=== PATIENT | female | born 1965 | race African-American/Black ===

== ENCOUNTER → 2016-09-15 | Outpatient (CLI) | payer BC ==
[~2016-09-15] MED LIST: ASCA500 PO; ASPI81TA28 PO; ATOR-22 PO; ATV/1 PO; BIOF500T PO; CHOL1000 PO; CRG3125 PO; EFF/375 PO; EFF75 PO; ESCI10TA17 PO; ESCI1TAB10 PO; GABA-112 PO; KRIL1CAP18 PO; LISI-729 PO; METO25TA56 PO; MULT-1092 PO; MULT-190 PO; MULT-506 PO; MULT1PAK PO; NAPR-1169 PO; OMEG12006 PO; OXYC5TAB PO; TRAM-10 PO; VITA400C28 PO
--- NOTE | 2016-09-15 09:58 | DIAGNOSTIC IMAGING REPORT ---
PET/CT SKULL-THIGH CLINICAL HISTORY: BREAST CANCER COMPARISON STUDY: 05/19/2016 FINDINGS: The patient was injected with 15.3 mCi of F-18 labeled FDG. Following the standard induction phase PET/CT scanning was performed from the skull base the upper thigh region. Activity within the neck is felt to be physiologic. Within the chest, there is increased FDG activity fusing to a single nonpathologically enlarged anterior mediastinal lymph node measuring 4 mm in short axis. This has SUV maximum of 4.3. The previously identified foci of increased FDG activity fusing to the right internal mammary artery chain are no longer evident. There are postsurgical changes of bilateral breast implants. There is increased FDG activity fusing to the lower right lateral chest wall at the intercostal level. This has SUV maximum of 4.5. There is infiltration of the overlying subcutaneous fat. In addition, there is a plaque-like pleural-based opacity measuring 38 x 12 mm. This plaque-like density has SUV maximum of 2.9. The findings are not typical for neoplasm. Does this patient have a history of surgery at this level. There is also a tiny calcific density within the pleura at this level which was not visualized the prior study Within the abdomen, there is no FDG avid adenopathy. There is physiologic urinary tract and bowel activity. There is no pathologic hepatic activity. There is no pathologic skeletal activity. Incidental note is made of cholelithiasis. There are right apical airspace opacities, similar to the prior study and likely representing areas of scarring. IMPRESSION: 1. Interval resolution of the previously described foci of increased FDG activity in the region of the right internal mammary lymph node chain 2. Nonspecific focus of mildly increased FDG activity (SUV maximum 4.3) fusing to a nonpathologically enlarged 4 mm right anterior mediastinal lymph node 3. New plaque-like pleural-based opacity at the base the right hemithorax laterally. This measures 38 x 12 mm, and has SUV maximum of 2.9. Adjacent to this is a focus of increased FDG activity within the intercostal region with SUV maximum of 4.5. There is also adjacent stranding within the overlying subcutaneous fat. As stated above, the findings are not typical for neoplasm. Clinical correlation in regards to any surgical procedure performed at this level is recommended Electronically signed by: Lamont Velez M.D. 09/15/2016 9:56 AM
== END | disposition home or self-care (01) ==
LOC: C.PET 07:58
PROVIDERS: ATTEND Internal Medicine Hematology
DX: C50.911 Malignant neoplasm of unspecified site of right female breast (principal); C77.3 Secondary and unspecified malignant neoplasm of axilla and upper limb lymph nodes

== ENCOUNTER → 2016-12-15 | Outpatient (CLI) | payer BC ==
[~2016-12-15] MED LIST changes: -ASPI81TA28 PO; -ATOR-22 PO; -BIOF500T PO; -CRG3125 PO; -ESCI10TA17 PO; -MULT-1092 PO; -MULT1PAK PO; -OMEG12006 PO
--- NOTE | 2016-12-15 11:16 | DIAGNOSTIC IMAGING REPORT ---
PET/CT HISTORY: Breast carcinoma BREAST CANCER TECHNIQUE: PET/CT was performed from the base of the skull through the pelvis following the intravenous administration of 15.4 mCi of F18-FDG. Non-contrast CT imaging was performed over the same range without breath-hold for attenuation correction of PET images and anatomic correlation, but not for primary interpretation as it is not of standard diagnostic quality. CT DOSE: COMPARISON: 09/15/2016 FINDINGS: HEAD AND NECK: There is no FDG-avid disease or significant lymphadenopathy in the imaged portions of the head and the neck. CHEST: 6 mm focus of increased metabolic activity in the right paratracheal location have an SUV of 4.0. This is increased in the prior exam. Nonspecific focus of increased activity left anterior chest wall with no CT correlate. Activity previously described to the lung bases has essentially resolved ABDOMEN/PELVIS: Below the diaphragm, tracer is distributed physiologically in the gastrointestinal and genitourinary tracts. There is no significant lymphadenopathy and no FDG-avid disease. MUSCULOSKELETAL: There is no FDG-avid or destructive bone lesion. IMPRESSION: 1. Mixed findings. 2. Improved metabolic activity characteristics of a plaque-like density right lung base. 3. Interval development of a small 6 mm metabolically active right paratracheal node as well as a small nonspecific focus left anterior chest wall 4. Study is otherwise negative Electronically signed by: Miah Parker M.D. 12/15/2016 11:14 AM Dictated Date/Time: 12/15/2016 11:03 AM
== END | disposition home or self-care (01) ==
LOC: C.PET 08:09
PROVIDERS: ATTEND Internal Medicine Hematology
DX: C50.911 Malignant neoplasm of unspecified site of right female breast (principal)

== ENCOUNTER → 2017-01-18 | Outpatient (CLI) | payer BC ==
[~2017-01-18] MED LIST changes: +ASPI81TA28 PO; +ATOR-22 PO; +BIOF500T PO; +CRG3125 PO; +ESCI10TA17 PO; +MULT-1092 PO; +MULT1PAK PO; +OMEG12006 PO
[2017-01-18 16:48] LABS: BASO % 0.3 %; BASO ABS # 0.01 K/uL (0-0.2); COMPLETE YES; EOS % 1.9 %; HEMATOCRIT 41.7 % (37-47); LYMPH % 41.1 %; LYMPH ABS # 1.54 K/uL (1.2-3.4); MEAN CELL VOLUME 86.2 fL (80-100); MEAN CORPUSCULAR HEMOGLOBIN 28.3 pg (25-34); MEAN CORPUSCULAR HGB CONC 32.9 g/dl (32-36); MEAN PLATELET VOLUME 8.8 fL (7.4-10.4); MONO % 9.3 %; NEUT % 47.4 %; PLATELET COUNT 161 K/uL (130-400); RED BLOOD COUNT 4.84 M/uL (4.2-5.4); WHITE BLOOD COUNT 3.75 K/uL (4.8-10.8)
[2017-01-18 17:29] LABS: BLOOD UREA NITROGEN 14 mg/dl (7-18); CALCIUM 10.1 mg/dl (8.5-10.1); CARBON DIOXIDE 33 mmol/L (21-32); CHLORIDE 104 mmol/L (98-107); CREATININE 0.99 mg/dl (0.60-1.20); GLUCOSE 76 mg/dl (70-99); POTASSIUM 4.3 mmol/L (3.5-5.1); SODIUM 142 mmol/L (136-145)
== END | disposition home or self-care (01) ==
LOC: C.LAB 15:28
PROVIDERS: ATTEND Surgery
DX: R94.8 Abnormal results of function studies of other organs and systems (principal); Z85.3 Personal history of malignant neoplasm of breast; R91.1 Solitary pulmonary nodule

== ENCOUNTER → 2017-01-24 | Day surgery (SDC) | payer BC ==
[2017-01-21 09:31] VITALS: BMI 24.0
[~2017-01-24] VITALS: Ht 180.3 cm; Wt 78.2 kg
[~2017-01-24] MED LIST changes: +ATROPINE SULFATE 0.1 MG/ML 5ML SYR IV PRN; +CEFAZOLIN SOD 1 GM VIAL ONE; +CLINDAMYCIN PHOS 150 MG/ML 2 ML VIAL ONE; +DEXAMETHASONE SOD INJ 4 MG/ML VIAL ONE; +EpHEDrine SULFATE 50MG/5ML SYR ONE; +EpHEDrine SULFATE INJ 50 MG/ML AMP IV PRN; +FENTANYL CITRATE INJ 50 MCG/1 ML 2 ML VIAL ONE; +FLUMAZENIL 0.1 MG/1 ML 10 ML VIAL IV PRN; +GLYCOPYRROLATE INJ 0.2 MG/ML VIAL ONE; +HYDROmorphone INJ 1 MG/ML SYR IV PRN; +HYDROmorphone INJ 1 MG/ML SYR ONE; +LACTATED RINGER'S 1000ML 1,000 ML IV SCH; +LIDOCAINE HCL 2% 2 ML VIAL (20MG/ML) ONE; +MIDAZOLAM HCL 1 MG/ML 2ML VIAL ONE; +MoRPHine SULFATE 2 MG/ML CARP IV PRN; +NALOXONE HCL 0.4 MG/1 ML VIAL/CARP IV PRN; +NEOSTIGMINE METHYLSULFATE 5 MG/5 ML SYR ONE; +ONDANSETRON INJ 2 MG/ML 2 ML VIAL IV PRN; +ONDANSETRON INJ 2 MG/ML 2 ML VIAL ONE; -OXYC5TAB PO; +PROMETHAZINE HCL INJ 12.5 MG in SODIUM CHLORIDE 0.9% 50ML 50 ML IV PRN; +PROPOFOL IV EMULSION 10 MG/ML 20 ML VIAL IV ONE; +ROCURONIUM BROMIDE 10 MG/ML 5 ML VIAL ONE; +TRAMADOL HCL 50 MG TAB PO PRN
[2017-01-24 06:06] VITALS: Ht 180.3 cm; Wt 78.2 kg
--- NOTE | 2017-01-24 06:57 | History & Physical Bridge Note ---
H&P Re-Evaluation Bridge Note: I have examined the patient, reviewed the History & Physical and in the interval since the performance of the History & Physical I have noted the following changes of clinical significance: No changes noted
--- NOTE | 2017-01-24 08:02 | Discharge Instructions ---
Discharge Instructions Date of Service January 24, 2017. Visit Reason for Visit: Pulmonary Nodule, Hx Of Breast Cancer, Abn Pet Sca Discharge Discharge Diagnosis / Problem: Pulmonary Nodule, Hx Of Breast Cancer, Abn Pet Sca Discharge Goals Goal(s): Learn about illness Activity Recommendations Activity Limitations: resume your previous activity (in 24 hours) Anesthesia . Post Anesthesia Instructions: If you have had General Anesthesia or IV Sedation: * Do not drive today. * Resume driving when surgeon permits. * Do not make important decisions or sign legal documents today. * Call surgeon for: 1. Temperature elevations greater than 101 degrees F. 2. Uncontrollable pain. 3. Excessive bleeding. 4. Persistent nausea and vomiting. 5. Medication intolerance (nausea, vomiting or rash). * For nausea and vomiting use only clear liquids such as: tea, soda, bouillon until nausea subsides, then gradually increase diet as tolerated. * If you have any concerns or questions, call your surgeon's office. If physician is unavailable and it is an emergency, call 911 or go to the nearest emergency room. . Instructions / Follow-Up Instructions / Follow-Up 1. Call physician if you experience difficulty swallowing or breathing. 2. Keep your scheduled appointment with Dr. Teixeira on February 01 @9:30. Diet Recommendations Recommended Home Diet: resume previous diet Pending Studies Studies pending at discharge: no Medical Emergencies . Who to Call and When: Medical Emergencies: If at any time you feel your situation is an emergency, please call 911 immediately. . Non-Emergent Contact Non-Emergency issues call your: Surgeon Call Non-Emergent contact if: you have a fever, your pain is not controlled, wound has increased drainage . . "Provider Documentation" section prepared by Jr Moralez. .
--- NOTE | 2017-01-24 10:18 | DIAGNOSTIC IMAGING REPORT ---
CHEST ONE VIEW PORTABLE HISTORY: mediastinoscopy COMPARISON: Chest 06/29/2016. FINDINGS: The heart is normal in size. A few bibasilar linear densities favor subsegmental atelectasis. No pleural effusions. No pneumothorax. The upper lung zones are clear. IMPRESSION: No acute process within the chest. Bibasilar linear densities favor atelectasis. Electronically signed by: Brad Paec M.D. 01/24/2017 10:17 AM Dictated Date/Time: 01/24/2017 10:15 AM
--- NOTE | 2017-01-24 11:37 | Anesthesiology Progress Note ---
Anesthesia Post Op Note Date & Time January 24, 2017 at 11:36 Vital Signs Pain Intensity: 3 Vital Signs Past 12 Hours Date Time Temp Pulse Resp B/P Pulse Ox O2 Delivery O2 Flow Rate FiO2 01/24/17 11:32 86 14 01/24/17 11:32 86 14 100 01/24/17 11:31 108/67 01/24/17 11:27 89 11 100 01/24/17 11:27 89 11 01/24/17 11:26 114/69 01/24/17 11:22 90 10 01/24/17 11:22 90 10 100 01/24/17 11:21 114/72 01/24/17 11:17 86 11 01/24/17 11:17 86 11 100 01/24/17 11:16 116/72 01/24/17 11:12 86 12 01/24/17 11:12 85 12 100 01/24/17 11:11 111/70 01/24/17 11:07 86 10 01/24/17 11:07 86 10 100 01/24/17 11:06 114/71 01/24/17 11:02 88 12 01/24/17 11:02 89 12 100 01/24/17 11:01 116/73 01/24/17 10:57 86 13 100 01/24/17 10:57 86 13 01/24/17 10:56 119/76 01/24/17 10:55 94 18 01/24/17 10:55 94 18 100 01/24/17 10:51 116/72 01/24/17 10:50 89 16 01/24/17 10:50 91 16 100 01/24/17 10:46 121/73 01/24/17 10:45 87 17 100 01/24/17 10:45 88 17 01/24/17 10:40 84 9 122/78 100 01/24/17 10:40 84 9 01/24/17 10:36 117/73 01/24/17 10:35 92 15 100 01/24/17 10:35 89 15 01/24/17 10:31 122/77 01/24/17 10:30 86 12 99 01/24/17 10:30 86 12 01/24/17 10:26 121/76 01/24/17 10:25 88 14 100 01/24/17 10:25 88 14 01/24/17 10:21 120/74 01/24/17 10:20 91 18 98 01/24/17 10:20 91 18 01/24/17 10:16 124/79 01/24/17 10:15 81 15 01/24/17 10:15 82 15 98 01/24/17 10:14 82 12 01/24/17 10:14 81 12 99 01/24/17 10:11 101/71 01/24/17 10:09 93 23 100 01/24/17 10:09 94 23 01/24/17 10:06 119/75 01/24/17 10:04 89 13 01/24/17 10:04 89 13 99 01/24/17 10:03 92 12 100 01/24/17 10:03 90 12 01/24/17 10:01 122/74 01/24/17 09:58 85 15 100 01/24/17 09:58 86 15 01/24/17 09:56 115/68 01/24/17 09:53 75 21 01/24/17 09:53 75 21 100 01/24/17 09:51 109/67 01/24/17 09:48 80 15 115/73 100 01/24/17 09:48 36.2 81 20 115/73 100 Mask 10 01/24/17 09:48 80 15 Notes Mental Status: alert / awake / arousable, participated in evaluation Pt Amnestic to Procedure: Yes Nausea / Vomiting: adequately controlled Pain: adequately controlled Airway Patency, RR, SpO2: stable & adequate BP & HR: stable & adequate Hydration State: stable & adequate Anesthetic Complications: no major complications apparent
[2017-01-24 11:48] VITALS: BP 117/63; PULSE 94; TEMP 36.5; O2SAT 96
--- NOTE | 2017-01-24 12:15 | OPERATIVE REPORT ---
DATE OF OPERATION: 01/24/2017 PREOPERATIVE DIAGNOSES: 1. Hypermetabolic mediastinal lymph nodes. 2. History of metastatic breast cancer. POSTOPERATIVE DIAGNOSES: 1. Metastatic carcinoma mediastinal lymph nodes. 2. History of breast cancer. PROCEDURE: Video mediastinoscopy with biopsy. SURGEON: Dr. Teixeira. COAL MINE INSPECTOR: TINY Castorena, and bee Mace 3. ANESTHESIA: General anesthesia with endotracheal intubation. INDICATION FOR PROCEDURE AND FINDINGS: Radha Fuller is a 52-year-old female who has a history of right breast cancer, underwent a right mastectomy, then a left mastectomy, and was found to have metastatic disease from her right breast to her lymph nodes. She received chemotherapy and radiation with bilateral breast reconstructions. I saw her several months ago when she had hypermetabolic nodes in her right internal mammary artery chain and did a thoracoscopic resection of these nodes. They were indeed metastatic breast cancer but were the only site of metastasis. She recently underwent a PET scan. Two areas in the mediastinum lit up, and on CT, the lymph nodes really were not enlarged. In addition, 1 of these masses/lymph nodes was prevascular in the level 3 area. On 01/24/2017, I took the patient to the operating room and did an uncomplicated video mediastinoscopy. I also did an extended mediastinoscopy and went into the prevascular plane. I was able to remove both of these nodes. Frozen section of the higher level 2 node was positive for carcinoma. She had no significant bleeding. She tolerated it well. PROCEDURE: The patient was brought to the operating room and laid in supine position. General anesthesia induced and endotracheal intubation was performed. After appropriate antibiotics had been given and timeout had been called out, an incision was made 1 fingerbreadth above the sternal notch. The strap muscles were divided in the midline and then the pretracheal plane was developed bluntly. I was able to put the scope in easily. The video mediastinoscope provided good visualization of the entire trachea down to the bifurcation. I cleaned off the azygos vein quite well and really saw very little in the 4 area. I actually dissected out quite aggressively on the lateral aspect of the right trachea. Then, I came upon a firm hard node at the level 2 area and removed it. Frozen section showed this to be metastatic carcinoma. This node was removed in its entirety. It measured about a centimeter. I then developed a plane anterior to the innominate artery and placed my scope, it came down, I was able to visualize the tissue between the vena cava and the aorta. I dissected this out meticulously. This hypermetabolic small focus was at the level of the azygos but was more anterior. I then went back into the pretracheal plane and I was able to come to this area where I dissected from anteriorly and removed this lymph node. I removed all the tissue here and there was acanthosis of the node. Really got into very little in the way of bleeding. I did not biopsy anything on the left side. I slowly withdrew the video mediastinoscope, saw no evidence of bleeding. I then used a 3-0 Vicryl to close the strap muscles and then 4-0 Monocryl in a running subcuticular fashion to approximate the wound edges. She tolerated it quite well. I attest to the content of the Intraoperative Record and any orders documented therein. Any exceptions are noted below. PATRICK
[2017-01-24 12:20] VITALS: BP 110/62; PULSE 100; O2SAT 96
[2017-01-24 12:50] VITALS: BP 106/61; PULSE 92; TEMP 36.4; O2SAT 97
[2017-01-24 13:25] VITALS: BP 110/61; PULSE 90; TEMP 36.4; O2SAT 97
[2017-01-24 13:44] VITALS: BP 110/66; PULSE 90; TEMP 36.5; O2SAT 96
== END | disposition home or self-care (01) ==
LOC: C.ACU 05:41
PROVIDERS: ATTEND Surgery
DX: C77.3 Secondary and unspecified malignant neoplasm of axilla and upper limb lymph nodes (principal); Z85.3 Personal history of malignant neoplasm of breast; R94.8 Abnormal results of function studies of other organs and systems; R91.1 Solitary pulmonary nodule; Z79.899 Other long term (current) drug therapy; Z90.13 Acquired absence of bilateral breasts and nipples; Z90.89 Acquired absence of other organs; F41.9 Anxiety disorder, unspecified; Z90.710 Acquired absence of both cervix and uterus; Z68.24 Body mass index [BMI] 24.0-24.9, adult; Z83.3 Family history of diabetes mellitus; Z82.49 Family history of ischemic heart disease and other diseases of the circulatory system

== ENCOUNTER → 2017-04-14 | Outpatient (CLI) | payer BC ==
[~2017-04-14] MED LIST changes: -ASPI81TA28 PO; -ATOR-22 PO; -ATROPINE SULFATE 0.1 MG/ML 5ML SYR IV PRN; -BIOF500T PO; -CEFAZOLIN SOD 1 GM VIAL ONE; -CLINDAMYCIN PHOS 150 MG/ML 2 ML VIAL ONE; -CRG3125 PO; -DEXAMETHASONE SOD INJ 4 MG/ML VIAL ONE; -ESCI10TA17 PO; -EpHEDrine SULFATE 50MG/5ML SYR ONE; -EpHEDrine SULFATE INJ 50 MG/ML AMP IV PRN; -FENTANYL CITRATE INJ 50 MCG/1 ML 2 ML VIAL ONE; -FLUMAZENIL 0.1 MG/1 ML 10 ML VIAL IV PRN; -GLYCOPYRROLATE INJ 0.2 MG/ML VIAL ONE; -HYDROmorphone INJ 1 MG/ML SYR IV PRN; -HYDROmorphone INJ 1 MG/ML SYR ONE; -LACTATED RINGER'S 1000ML 1,000 ML IV SCH; -LIDOCAINE HCL 2% 2 ML VIAL (20MG/ML) ONE; -MIDAZOLAM HCL 1 MG/ML 2ML VIAL ONE; -MULT-1092 PO; -MULT1PAK PO; -MoRPHine SULFATE 2 MG/ML CARP IV PRN; -NALOXONE HCL 0.4 MG/1 ML VIAL/CARP IV PRN; -NEOSTIGMINE METHYLSULFATE 5 MG/5 ML SYR ONE; -OMEG12006 PO; -ONDANSETRON INJ 2 MG/ML 2 ML VIAL IV PRN; -ONDANSETRON INJ 2 MG/ML 2 ML VIAL ONE; -PROMETHAZINE HCL INJ 12.5 MG in SODIUM CHLORIDE 0.9% 50ML 50 ML IV PRN; -PROPOFOL IV EMULSION 10 MG/ML 20 ML VIAL IV ONE; -ROCURONIUM BROMIDE 10 MG/ML 5 ML VIAL ONE; -TRAMADOL HCL 50 MG TAB PO PRN
[2017-04-14 13:29] VITALS: BP 112/79; PULSE 80; TEMP 37; O2SAT 98
--- NOTE | 2017-04-14 16:14 | Radiation Oncology Follow-Up ---
Radiation Oncology Follow-Up Date of Visit Apr 14, 2017. 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, invasive micropapillary type Clinical stage T4d N3c M0 estrogen receptor negative, progesterone receptor negative, HER-2/marely positive Status post 6 cycles of TCH Status post bilateral mastectomies with right sentinel lymph node biopsy and axillary dissection 03/10/2015, immediate placement of tissue expanders Pathologic Stage ypT1a ypN2 M0 Ongoing treatment with Herceptin Status post completion of radiation therapy 09/18/2015 received 6120 cGy Status post placement of permanent implants 01/20/2016 Status post right thoracoscopy with biopsy and takedown of segment of intramammary lymph nodes 06/11/2016 Status post video assisted mediastinoscopy with removal of metastatic lymph nodes 01/24/2017 Last Edited By: Regi Luciano on Apr 14, 2017 16:04 History of Present Illness Ms. Fuller is a 51-year-old woman who noted some changes in the right breast. She had previously had biopsies in the past for cysts. In July 2014 the patient noted some nipple changes on the right with nipple widening. In August 2014 she started to feel breast fullness and a change in the shape of the right breast. Her baseline mammogram was performed in 2003. At that time an ultrasound was performed showing multiple ( greater than 20) bilateral masses. FNA was done of easily palpable 70 mm lesions in the right breast at the 11 o'clock position. No malignant cells were appreciated. These appearances were not typical of a fibroadenoma and continued follow-up was recommended. The patient had not been receiving routine mammograms. She was seen by her PCP Dr. Josue on 09/24/2014. The patient was scheduled for bilateral digital diagnostic mammograms. This procedure was performed on 10/04/2014. This showed diffusely abnormally increased density of the right breast with overlying diffuse skin thickening noted. Extensive faint amorphous calcifications are seen throughout the right breast with an oval rim calcified 1.4 cm oval mass seen within the right breast at approximately the 9 to 10 o'clock position. Additionally there were markedly abnormal right axillary lymph nodes which contained similar appearing faint amorphous calcifications. Mammogram of the left breast demonstrated multiple nodular asymmetries which could up secure abnormal masses. Patient underwent targeted ultrasound of all 4 quadrants of the right breast. There was diffuse abnormalities of the right breast involving all quadrants. Abnormal illdefined hypoechoic shadowing was noted throughout the breast. A more masslike mixed echogenicity region was seen in the right breast at approximately 9:00. The fused overlying skin thickening was noted. Physical examination of the breast demonstrated a peau d'orange appearance of the skin as well as erythema and warmth of the periareolar region. These findings were highly suspicious for malignancy and of concern or inflammatory breast cancer. Targeted ultrasound of the right axilla demonstrated multiple markedly abnormal axillary lymph nodes the largest of which measured 2.7 x 2.4 cm. The suspicious for neeru metastasis. Targeted ultrasound was performed of all 4 quadrants of the left breast. Multiple small circumscribed hypoechoic an isoechoic masses are seen throughout the left breast which are benign appearing. Impression was BI-RADS Category 5 highly suggestive of malignancy. Surgical consult was recommended as was a biopsy. The patient was seen for surgical evaluation by Dr. Agnes Holman on 10/08/2014. Clinically her right breast examination revealed a large dominant centrally located mass extending into the upper outer quadrant. Grossly this measured over 10 cm in size with widening and flattening of the nipple. Peau d'orange was noted centrally around the areola. There was erythema surrounding the peau d'orange. There were papillary right axillary adenopathy with at least 2 large nodes identified measuring over 2 cm. No palpable supraclavicular adenopathy was appreciated. Dr. Holman arranged for the patient to be scheduled for an ultrasound core biopsy of the right breast and right axilla with clip placement. This was scheduled and on 10/10/2014 the patient underwent an ultrasound guided core needle biopsy of the right breast mass this revealed an infiltrating ductal carcinoma, invasive micropapillary type, grade 3 of 3. An ultrasound core biopsy of the right axillary lymph node was also performed. This showed metastatic adenocarcinoma. The tumor size measured at least 1.1 cm based on the biopsy specimen. No lymphovascular or perineural invasion was noted. Estrogen receptors were negative. Progesterone receptors were negative. HER-2/marely was positive (3+). Tissue was also positive by FISH analysis. The stain for proliferation marker Ki-67 stained approximately 70% of the tumor cells. Case: [id number]. Dr. Holman performed a right breast 10:00 periareolar punch biopsy that was sent to the [facility] in [place]. This biopsy confirmed intravascular carcinoma compatible with inflammatory breast carcinoma. Accession #: [id number]. Dr. Holman ordered staging bilateral breast MRIs which were performed on 2014. In the right breast there was marked background parenchymal enhancement. Diffuse abnormal enhancement is seen throughout the right breast involving all 4 quadrants measuring at least 14.6 cm in maximal and extent. These are compatible with multicentric disease. A biopsy marker clip is seen within the abnormal enhancement in the right breast at approximately 9:00 from the ultrasound-guided biopsy which was positive. Additionally there is diffuse abnormal skin thickening and corresponding T2 hyperintensity and enhancement. There was T2 hyperintensity of the right pectoralis muscle without abnormal enhancement. The left breast showed scattered enhancing foci and enhancing route /oval masses which were likely benign and may represent fibroadenomas or background parenchymal enhancement. Follow-up MRI in 6 months was recommended. In the right axilla extensive right axillary, subpectoral and interpectoral adenopathy was noted. The largest right axillary lymph node measured 3 cm in size with a biopsy marker clips seen within the mass consistent with the biopsy-proven neeru metastasis. There is an abnormal right internal mammary lymph node measuring 0.7 x 1.1 cm concerning for metastasis. Dr. Holman will arrange for a targeted ultrasound of the left breast. There was no evidence of left axillary adenopathy or left internal mammary adenopathy. The patient was seen in referral by Dr. Elio Barrera on 10/16/2014. He identified a right breast inflammatory carcinoma with palpable axillary adenopathy. Clinical stage is T4d N2 Mx, ER negative NH negative HER-2/marely positive with Ki-67 of 70%. He discussed with the patient the use of neoadjuvant chemotherapy consisting of Taxotere, Carboplatin, Herceptin, and Pertuzumab. He discussed a total of 6 cycles of chemotherapy every 3 weeks followed by surgical intervention after 6 cycles and subsequent adjuvant radiation. He also recommended a staging PET/CT scan. This was performed on 2014. This showed a right supraclavicular lymph node measuring 1.1 x 1.3 cm and a maximum SUV of 11.2. There were enlarged and markedly FDG avid right axillary lymph nodes the largest measuring 3.3 x 2.5 cm and a maximum SUV of 14.2. There was an enlarged and FDG avid right internal mammary lymph node measuring up to 0.7 cm and demonstrating a maximum SUV of 6.7. FDG avid subpectoral lymph nodes were noted with maximum SUV of 4.0. The right breast was markedly abnormal in appearance. Calcification containing lesion was identified and was markedly FDG avid and measures approximately 3.7 x 2.3 cm and a maximum SUV of 20.1. In addition there is abnormal FDG activity throughout the remainder of the visualized glandular parenchyma throughout the entire right breast. There is foci of FDG avid dermal thickening identified above the nipple. No abnormality seen in the left breast. No abnormality seen in the abdomen and pelvis. There is no evidence of bony metastatic disease appreciated. An MRI of the brain was performed on October 22 and showed no evidence of metastatic disease. The patient returned to discuss the surgical treatment options of her inflammatory right breast carcinoma following completion of her systemic chemotherapy. The patient expressed a desire to consider bilateral mastectomies with tissue expanders. She will be scheduled to see a plastic surgeon on November 27. The patient was started on systemic therapy as outlined above.. A left-sided Mediport was placed. Patient appeared to have a early response to systemic chemotherapy. The right axillary adenopathy was markedly decreased and the right breast itself became softer. Patient is started her second cycle of chemotherapy on November 13. Dr. Holman asked us to see the patient to discuss with the patient the ultimate role of adjuvant radiation. The patient completed 6 cycles of TCH. She tolerated this well. She did have some discoloration of her nails. She has alopecia. She had no severe episodes of nausea or vomiting. No problems with diarrhea. She had some fatigue. She then returned to Dr. Agnes Holman and underwent her bilateral mastectomies. Immediate placement of tissue expanders was also performed by Dr. Balderas. This surgery took place on 03/10/2015. Path report revealed 3 benign sentinel lymph nodes. She went on to have axillary dissection. 4 of 16 nodes were positive. The largest metastatic lesion measured 0.3 cm. There was no extranodal extension. The right mastectomy specimen showed 2 foci of tiny residual disease. 0.1 cm and 0.02 cm. She is steadily recovering from her surgery. There were [address] These have been removed. She does have discomfort under the right axilla. There is pain with abducting the arm. She completed filling of the tissue expanders. She will return to our office for CT simulation and begin the process of treatment. She completed radiation therapy 09/18/2015. She received 6120 cGy. Interim History Following our visit last year she underwent a PET/CT which revealed PET avid lymphadenopathy of the mediastinum. Her case was discussed at tumor board and decision was to go forward with thoracic surgery. On 06/11/2016 she had a right thoracoscopy with biopsy and take down of the segment of of internal mammary lymph nodes. These were ER and NH negative and HER-2/marely positive. She continue to be followed and had a similar finding in January 2017. She then had video mediastinal endoscopy with biopsy and removal of metastatic lymph nodes. She is followed closely I Dr. Barrera medical oncology. He is planning her next PET scan for May. She denies any discomforts of the chest wall. She does have some tightness of the shoulder and axilla. She has a history of lymphedema. She does follow her lymphedema exercises as well as stretching exercises. She is Aquaphor for dryness of the skin. She wears a cooling cloth when out of doors. She is also using a special umbrella to prevent UV exposure. She has hot flashes. She recently had her antidepressant changed to Effexor. This was in hope that the medication would help with hot flashes. Allergies Coded Allergies: Animal Dander (Unverified Allergy, Mild, HIVES, 01/24/17) Aspirin (Verified Allergy, Unknown, unknown, 01/24/17) Orphenadrine (Verified Allergy, Unknown, unknown, 01/24/17) Home Medications Scheduled Ascorbic Acid (Vitamin C), 1 TAB PO TID Cholecalciferol (Vitamin D3), 1,000 INTERUNIT PO QPM Krill Oil (Megared Hinkley-3 Krill Oil 500 mg), 1 CAP PO QPM Lisinopril (Zestril), 2.5 MG PO QPM Metoprolol Tartrate (Lopressor) (Lopressor), 25 MG PO QPM Multivitamin (Multivitamin), 1 TAB PO QAM Ocuvite Preservision (Ocuvite Preservision), 1 TAB PO BID Venlafaxine Hcl (Effexor), 1 TAB PO DAILY Scheduled PRN Gabapentin (Neurontin), 100 MG PO TID PRN for RN Lorazepam (Ativan), 1 MG PO TID PRN for ANXIETY Naproxen (Naprosyn), 500 MG PO BID PRN for PRN Review of Systems Gastrointestinal: Symptoms: WNL GI Comments: "slightly constipated now due to being off schedule " Oral: Symptoms: No Problems Respiratory: Symptoms: WNL Urinary: Symptoms: WNL Skin: Symptoms: No Problems Other Skin Symptoms: States skin in treatment site remains sensitive to heat ; Breast: Right Upper Arm Measurement: 29.8 Right Mid Arm Measurement: 26.0 Right Wrist Measurement: 16.0 Left Upper Arm Measurement: 28.3 Left Mid Arm Measurement: 25.0 Left Wrist Measurement: 16.0 Arm Dominence: Right Patient Cosmetic Evaluation: Good Staff Cosmetic Evalaluation: Excellent Physical Exam Vital Signs Date Time Temp Pulse Resp B/P (MAP) Pulse Ox O2 Delivery O2 Flow Rate FiO2 04/14/17 13:29 37.0 80 12 112/79 98 Pain: Pain Onset: skin was peeling and she pulled it off Pain Duration: last week Side: Bilateral Pain Location: Breast Patient Pain Scale: 0 - 10 Initial Pain Intensity: 0.0 Additional Comments: tender General Appearance: no apparent distress Eyes: normal inspection, EOMI ENT: normal ENT inspection, hearing grossly normal Neck: no adenopathy, thyroid normal Respiratory/Chest: lungs clear, no respiratory distress, no accessory muscle use Breast: Examination reveals bilateral implants. There are no masses or tenderness no axillary adenopathy. Continues to have some mild hyperpigmentation on the right. There is no axillary adenopathy. Using the Seibert score cosmesis she has a good outcome. Cardiovascular: regular rate, rhythm, no gallop, no murmur Abdomen: normal bowel sounds, non tender Extremities: no pedal edema Neurologic/Psychiatric: no motor/sensory deficits, alert, normal mood/affect Skin: warm/dry Laboratory Studies Test 01/18/17 16:02 White Blood Count 3.75 K/uL (4.8-10.8) Red Blood Count 4.84 M/uL (4.2-5.4) Hemoglobin 13.7 g/dL (12.0-16.0) Hematocrit 41.7 % (37-47) Mean Corpuscular Volume 86.2 fL (80-100) Mean Corpuscular Hemoglobin 28.3 pg (25-34) Mean Corpuscular Hemoglobin Concent 32.9 g/dl (32-36) Platelet Count 161 K/uL (130-400) Mean Platelet Volume 8.8 fL (7.4-10.4) Neutrophils (%) (Auto) 47.4 % Lymphocytes (%) (Auto) 41.1 % Monocytes (%) (Auto) 9.3 % Eosinophils (%) (Auto) 1.9 % Basophils (%) (Auto) 0.3 % Neutrophils # (Auto) 1.78 K/uL (1.4-6.5) Lymphocytes # (Auto) 1.54 K/uL (1.2-3.4) Monocytes # (Auto) 0.35 K/uL (0.11-0.59) Eosinophils # (Auto) 0.07 K/uL (0-0.5) Basophils # (Auto) 0.01 K/uL (0-0.2) RDW Standard Deviation 40.9 fL (36.4-46.3) RDW Coefficient of Variation 12.9 % (11.5-14.5) Immature Granulocyte % (Auto) 0.0 % Immature Granulocyte # (Auto) 0.00 K/uL (0.00-0.02) Sodium Level 142 mmol/L (136-145) Potassium Level 4.3 mmol/L (3.5-5.1) Chloride Level 104 mmol/L (98-107) Carbon Dioxide Level 33 mmol/L (21-32) Anion Gap 5.0 mmol/L (3-11) Blood Urea Nitrogen 14 mg/dl (7-18) Creatinine 0.99 mg/dl (0.60-1.20) Estimated GFR () 74.9 Estimated GFR (Non- 64.6 BUN/Creatinine Ratio 14.0 (10-20) Random Glucose 76 mg/dl (70-99) Calcium Level 10.1 mg/dl (8.5-10.1) Assessment & Plan Plan: Continue regular follow-up with Dr. Barrera in medical oncology. She is to have a recheck PET scan in May. She'll continue her stretching exercises as well as exercises for prevention of lymphedema. We asked her to return to our office in 1 year. She may call if she has any questions or concerns in the interim. Total Time In Follow-Up I spent 20 minutes speaking to the patient performing examination. I spent 15 minutes reviewing information in completing this note. Copy To Agnes Holman MD; Alexandra Berman,DO; Elio Barrera M.D. Problem Qualifiers (1) Breast cancer, stage 3: Laterality: right Qualified Codes: C50.911 - Malignant neoplasm of unspecified site of right female breast
== END | disposition home or self-care (01) ==
LOC: C.ONC 12:54
PROVIDERS: ATTEND Physician Assistant Medical
DX: Z08 Encounter for follow-up examination after completed treatment for malignant neoplasm (principal); Z92.3 Personal history of irradiation; Z85.3 Personal history of malignant neoplasm of breast

== ENCOUNTER → 2017-05-23 | Outpatient (CLI) | payer BC ==
[~2017-05-23] MED LIST changes: -EFF/375 PO; -ESCI1TAB10 PO; -TRAM-10 PO; -VITA400C28 PO
--- NOTE | 2017-05-23 12:23 | DIAGNOSTIC IMAGING REPORT ---
PET/CT SKULL-THIGH CLINICAL HISTORY: BREAST CANCER COMPARISON STUDY: 12/15/2016 FINDINGS: The patient was injected with 11.7 mCi of F 18 labeled FDG. Following the standard induction phase, PET/CT scanning is performed from the skull base to the upper thigh region. There is a new focus of increased FDG activity fusing to a 9 mm left supraclavicular lymph node. This has an SUV maximum of 5.2. There is a new focus of increased FDG activity fusing to clustered left retroclavicular lymph nodes measuring 15 x 6 mm in aggregate. These have an FDG maximum of 4.0. There is increased FDG activity within a prevascular lymph node measuring 4 mm. This hasn't SUV maximum of 4.4. There is a focus of mildly increased FDG activity with SUV maximum of 2.6, fusing to a left retroperitoneal lymph node. There is an FDG avid 1 cm prevascular lymph node with SUV maximum of 5.8. The previously identified midline lymph node located anterior to the superior vena cava has an SUV maximum of 4.4. This node measures 6 mm in diameter. There are no FDG avid parenchymal nodules. There is right apical pleural-parenchymal scarring. There are bilateral breast implants. Within the abdomen and pelvis, there is physiologic urinary tract and bowel activity. There is no pathologic hepatic activity. There is cholelithiasis. There is no pathologic neeru activity within the abdomen or pelvis. There are no FDG avid bony lesions. IMPRESSION: Interval development of multiple FDG avid lower cervical and mediastinal lymph nodes, likely representing disease progression Electronically signed by: Lamont Velez M.D. 05/23/2017 12:22 PM Dictated Date/Time: 05/23/2017 12:10 PM
== END | disposition home or self-care (01) ==
LOC: C.PET 09:20
PROVIDERS: ATTEND Internal Medicine Hematology
DX: C50.911 Malignant neoplasm of unspecified site of right female breast (principal); C77.3 Secondary and unspecified malignant neoplasm of axilla and upper limb lymph nodes; R59.0 Localized enlarged lymph nodes

== ENCOUNTER → 2017-08-22 | Day surgery (SDC) | payer BC ==
[2017-08-18 16:21] VITALS: BMI 23.0
[~2017-08-22] VITALS: Ht 180.3 cm; Wt 74.1 kg
[~2017-08-22] MED LIST changes: +ASPI81TA28 PO; +ATOR-22 PO; +ATROPINE SULFATE 0.1 MG/ML 5ML SYR IV PRN; +BIOF500T PO; +CEFAZOLIN 2000MG IV PUSH 10 ML IV SCH; +CRG3125 PO; -EFF75 PO; +ESCI10TA17 PO; +FENTANYL CITRATE INJ 50 MCG/1 ML 2 ML VIAL IV PRN; +FENTANYL CITRATE INJ 50 MCG/1 ML 2 ML VIAL ONE; -KRIL1CAP18 PO; +LACTATED RINGER'S 1000ML 1,000 ML IV SCH; +LIDOCAINE HCL 1% 20 ML VIAL ONE; +LIDOCAINE HCL 2% 2 ML VIAL (20MG/ML) ONE; -METO25TA56 PO; +MIDAZOLAM HCL 1 MG/ML 2ML VIAL ONE; +MULT-1092 PO; -MULT-506 PO; +MULT1PAK PO; +MoRPHine SULFATE 4 MG/ML 1 ML CARP\\VIAL IV PRN; +OMEG12006 PO; +ONDANSETRON INJ 2 MG/ML 2 ML VIAL IV PRN; +ONDANSETRON INJ 2 MG/ML 2 ML VIAL ONE; +OXYCODONE/ACETAMINOPHEN 5-325 TAB PO PRN; +PROPOFOL IV EMULSION 10 MG/ML 20 ML VIAL IV ONE; +SODIUM CHLORIDE 0.9% 1000ML 1,000 ML IV SCH
[2017-08-22 07:16] VITALS: BP 119/73; PULSE 86; TEMP 36.9; O2SAT 97; Ht 180.3 cm; Wt 74.1 kg
--- NOTE | 2017-08-22 09:42 | [facility] Post Operative Brief Note ---
Immediate Operative Summary Operative Date Aug 22, 2017. Pre-Operative Diagnosis Recurrent breast cancer, need for central line placement Post-Operative Diagnosis Same as preop Procedure(s) Performed Infusaport placement into right subclavian vein Surgeon Dr. Abrams Business Administration Professor Surgeon(s) None Estimated Blood Loss 10 cc Findings See dictation Specimens None, as per surgeon Drains None Anesthesia Local with sedation Complication(s) None Disposition Recovery Room / PACU
--- NOTE | 2017-08-22 09:46 | Discharge Instructions ---
Discharge Instructions Date of Service Aug 22, 2017. Admission Reason for Admission: Circulary System Disorder Discharge Discharge Diagnosis / Problem: Same, need for rn long term care central venous access Discharge Goals Goal(s): Improve disease control Activity Recommendations Activity Limitations: per Instructions/Follow-up section Lifting Limitations: no more than 10 pounds (with right arm for 5 days) . Instructions / Follow-Up Instructions / Follow-Up MEDICATIONS: Resume previous medications unless instructed otherwise by your surgeon. * Ibuprofen 600 mg every 6 hours with food * Tylenol 650 mg every 4 hours, as needed for pain SPECIAL CARE INSTRUCTIONS: * Your A-port may be used immediately. * May shower in 24 hours. Let water run over area and pat dry. * Leave op-site dressing on for 3 days and then remove. * Call the surgeon's office with any questions or concerns - (ex. temperature higher than 101 degrees F, excessive bleeding or pain). FOLLOW UP VISIT: If not already scheduled, please call the office to schedule a two week follow- up appointment. Office number Current Hospital Diet Patient's current hospital diet: Discharge Diet Recommended Diet: Regular Diet Procedures Procedures Performed: Infusaport placement into right subclavian vein Pending Studies Studies pending at discharge: no Medical Emergencies . Who to Call and When: Medical Emergencies: If at any time you feel your situation is an emergency, please call 911 immediately. . Non-Emergent Contact Non-Emergency issues call your: Primary Care Provider, Surgeon Call Non-Emergent contact if: your pain is worsening, wound has increased redness, wound has increased pain . "Provider Documentation" section prepared by Miah Abrams. . VTE Core Measure Inpt VTE Proph given/why not?: Treatment not indicated
--- NOTE | 2017-08-22 10:22 | DIAGNOSTIC IMAGING REPORT ---
CHEST ONE VIEW PORTABLE CLINICAL HISTORY: s/p placement of Aport COMPARISON STUDY: 01/24/2017 FINDINGS: The cardiac images all contours remain stable. There has been interval insertion of a right subclavian A-Port catheter. The tip projects over the superior vena cava. No pneumothorax is visualized. Surgical clips project over the right hilar region. Increased density of the right hemithorax is felt to be secondary to overlying breast prosthesis.[ There is no failure. There is no focal pulmonary consolidation. IMPRESSION: 1. No evidence of pneumothorax status post placement of a right subclavian A-Port catheter. The tip projects over the superior vena cava. Electronically signed by: Lamont Velez M.D. 08/22/2017 10:20 AM Dictated Date/Time: 08/22/2017 10:19 AM
[2017-08-22 10:25] VITALS: BP 114/73; PULSE 75; TEMP 36.5; O2SAT 98
--- NOTE | 2017-08-22 10:31 | OPERATIVE REPORT ---
DATE OF OPERATION: 08/22/2017 PREOPERATIVE DIAGNOSIS: Need for long-term central venous access. POSTOPERATIVE DIAGNOSIS: Same. PROCEDURE: Placement of A-port tunneled central venous access catheter with port. SURGEON: Dr. Abrams. FINDINGS: The vein was entered on the first attempt. The wire passed with ease. The catheter after being placed had good blood return and it was easily flushed without leaking. TECHNIQUE: The patient was given intravenous sedation and the area was prepped and draped in the usual sterile fashion. The skin and subcutaneous tissue in the right infraclavicular area were anesthetized with 1% Xylocaine without epinephrine. The vein was entered. The wire was passed with ease. The tip of the wire was confirmed in the right atrium by fluoroscopy. A small incision was made in the skin at the exit site of the wire and a pocket was created inferior to that to assure soft turn in the catheter. The site for the port was chosen. She then asked if we could keep the port little bit more medial, so that it would not be rubbed by her bra strap and she also has breast implant, so the port had to be placed a little bit more superiorly. The site for the port was chosen based on that. The skin and subcutaneous tissue superior to that area were anesthetized with 1% Xylocaine without epinephrine. Skin incision was made and dissection was carried down to what was possibly the remainder of the prepectoral fascia, but also scar tissue. The port fit nicely in the pocket. The introducer sheath device was passed under fluoroscopic guidance. The introducer and wire were removed and the catheter was passed through the sheath under fluoroscopic guidance. It was seen to enter the right atrium. The sheath was peeled. The catheter was passed using the tunneling device from the infraclavicular incision to the port incision. Fluoroscopy was used to size the catheter and it was cut and attached to the port with ease. The port was then accessed and there was good blood return and it was easily flushed first with saline and then heparinized saline. The port was secured to the deeper tissues using interrupted 2-0 Prolene. The port incision was closed with a running 3-0 Vicryl, the deep subcutaneous tissue with a running 2-0 Vicryl and the superficial subcutaneous tissue with a running 4-0 Monocryl in the subcuticular tissue with the skin. The infraclavicular incision was closed with an interrupted subcuticular suture of 4-0 Monocryl. The estimated blood loss was 10 mL. The skin was cleansed, dried and a dressing placed. Sponge, needle, and instrument counts were correct prior to closure. The patient tolerated the surgical procedure without complication and was transferred to recovery. I attest to the content of the Intraoperative Record and any orders documented therein. Any exception s are noted below.
[2017-08-22 10:55] VITALS: BP 110/68; PULSE 71; TEMP 36.7; O2SAT 98
[2017-08-22 11:25] VITALS: BP 97/65; PULSE 76; TEMP 36.7; O2SAT 96
--- NOTE | 2017-08-22 12:02 | Anesthesiology Progress Note ---
Anesthesia Post Op Note Date & Time Aug 22, 2017 at 12:02 Vital Signs Pain Intensity: 0 Vital Signs Past 12 Hours Date Time Temp Pulse Resp B/P (MAP) Pulse Ox O2 Delivery O2 Flow Rate FiO2 08/22/17 11:25 36.7 76 18 97/65 96 Room Air 08/22/17 10:55 36.7 71 18 110/68 98 Room Air 08/22/17 10:25 36.5 75 18 114/73 98 Room Air 08/22/17 10:15 37 71 16 109/75 97 Room Air 08/22/17 10:05 70 16 112/73 97 Room Air 08/22/17 09:55 71 16 104/68 98 Oxymask 10 08/22/17 09:47 36.5 73 16 112/78 99 Oxymask 10 08/22/17 07:16 36.9 86 18 119/73 (88) 97 Room Air Notes Mental Status: alert / awake / arousable, participated in evaluation Pt Amnestic to Procedure: Yes Nausea / Vomiting: adequately controlled Pain: adequately controlled Airway Patency, RR, SpO2: stable & adequate BP & HR: stable & adequate Hydration State: stable & adequate Anesthetic Complications: no major complications apparent
== END | disposition home or self-care (01) ==
LOC: C.ACU 06:37
PROVIDERS: ATTEND Surgery
DX: I99.9 Unspecified disorder of circulatory system (principal); C50.911 Malignant neoplasm of unspecified site of right female breast; C77.3 Secondary and unspecified malignant neoplasm of axilla and upper limb lymph nodes; I42.7 Cardiomyopathy due to drug and external agent; T45.1X5A Adverse effect of antineoplastic and immunosuppressive drugs, initial encounter; F41.8 Other specified anxiety disorders; K21.9 Gastro-esophageal reflux disease without esophagitis; K58.9 Irritable bowel syndrome, unspecified; Z79.82 Long term (current) use of aspirin; Z79.899 Other long term (current) drug therapy

== ENCOUNTER → 2017-11-28 | Outpatient (CLI) | payer BC ==
[~2017-11-28] MED LIST changes: -ATROPINE SULFATE 0.1 MG/ML 5ML SYR IV PRN; -CEFAZOLIN 2000MG IV PUSH 10 ML IV SCH; -FENTANYL CITRATE INJ 50 MCG/1 ML 2 ML VIAL IV PRN; -FENTANYL CITRATE INJ 50 MCG/1 ML 2 ML VIAL ONE; -LACTATED RINGER'S 1000ML 1,000 ML IV SCH; -LIDOCAINE HCL 1% 20 ML VIAL ONE; -LIDOCAINE HCL 2% 2 ML VIAL (20MG/ML) ONE; -MIDAZOLAM HCL 1 MG/ML 2ML VIAL ONE; -MoRPHine SULFATE 4 MG/ML 1 ML CARP\\VIAL IV PRN; -ONDANSETRON INJ 2 MG/ML 2 ML VIAL IV PRN; -ONDANSETRON INJ 2 MG/ML 2 ML VIAL ONE; -OXYCODONE/ACETAMINOPHEN 5-325 TAB PO PRN; -PROPOFOL IV EMULSION 10 MG/ML 20 ML VIAL IV ONE; -SODIUM CHLORIDE 0.9% 1000ML 1,000 ML IV SCH
--- NOTE | 2017-11-28 13:23 | DIAGNOSTIC IMAGING REPORT ---
PET/CT HISTORY: BREAST CANCER TECHNIQUE: PET/CT was performed from the base of the skull through the pelvis following the intravenous administration of 13.7 mCi of F18-FDG. Non-contrast CT imaging was performed over the same range without breath-hold for attenuation correction of PET images and anatomic correlation, but not for primary interpretation as it is not of standard diagnostic quality. CT DOSE: 239.83 mGycm COMPARISON: Head CT 05/23/2017. FINDINGS: HEAD AND NECK: Symmetric FDG perfusion within the brain. The FDG avid left lower cervical/supraclavicular lymph nodes appear to be partially calcified and demonstrates slightly diminished FDG uptake compared to the prior study. Therefore, this likely represents treatment response. These are similar in size compared to the prior study with the largest measuring 1 cm. CHEST: The FDG avid mediastinal lymph nodes seen on the prior study demonstrate interval calcification and resolution of the abnormal FDG uptake. However, there are 2 new FDG avid mediastinal lymph nodes which demonstrate mild FDG uptake. These are seen within the anterior mediastinum and left prevascular space. The largest measures 13 x 8 mm at the prevascular space and demonstrates an SUV max of 3.1. No FDG avid hilar lymphadenopathy. A right Port-A-Cath terminates at the distal SVC. No FDG avid or suspicious pulmonary nodules. A right basilar peripheral scarlike density, unchanged. There is also stable right apical scarlike density. ABDOMEN/PELVIS: Below the diaphragm, tracer is distributed physiologically in the gastrointestinal and genitourinary tracts. There is no significant lymphadenopathy and no FDG-avid disease. Cholelithiasis. Minimal FDG uptake at the umbilicus. No corresponding abnormality by CT. Therefore, this is of doubtful clinical significance. MUSCULOSKELETAL: There is no FDG-avid or destructive bone lesion. IMPRESSION: 1. The majority of the FDG avid lymph nodes within the left neck and chest seen on the previous study demonstrate partial calcification and decreased FDG uptake consistent with treatment response. 2. However, there are 2 new FDG avid mediastinal lymph nodes with the largest in the left prevascular space which demonstrate mild FDG uptake. Electronically signed by: Brad Pace M.D. 11/28/2017 1:22 PM Dictated Date/Time: 11/28/2017 1:10 PM
== END | disposition home or self-care (01) ==
LOC: C.PET 07:32
PROVIDERS: ATTEND Internal Medicine Hematology
DX: C50.911 Malignant neoplasm of unspecified site of right female breast (principal); C77.3 Secondary and unspecified malignant neoplasm of axilla and upper limb lymph nodes

== ENCOUNTER 2019-09-30 21:02 | Inpatient (IN) ==
--- OUTSIDE RECORDS SUMMARY | 2019-09-30 21:04 | External Medical Summary | Continuity of Care Document ---
:1965 Author Name Segundo Camara, Provider Address Unavailable Unavailable , Care Team Providers Name Role Phone [facility] Hoa, Provider Unavailable [email or web address] Moralez PA-C, Jr Unavailable [email or web address] JEREMI ROWE Unavailable Unavailable Unavailable Unavailable Unavailable Problems Sinusitis (473.9) (J32.9) Pulmonary nodule (793.11) (R91.1) Abnormal positron emission tomography (PET) scan (794.9) (R9 4.8) History of breast cancer (V10.3) (Z85.3) Allergies and Adverse Reactions Aspirin TABS (Allergy) Caffeine (Allergy) orphenadrine (Allergy) Animal dander (Allergy) Medications traMADol HCl - 50 MG Oral Tablet; TAKE 1 TABLET EVERY 6 HOURS NEEDED FOR PAIN. Start: 26-May-2016 Quantity: 10 Refills: 0 Naproxen 500 MG Oral Tablet; TAKE 1 TABLET EVERY 12 HOURS NEEDED. Start: 26-May-2016 Refills: 0 Multivitamins Oral Capsule; TAKE 1 CAPSULE DAILY. Start: 26-May-2016 Refills: 0 Metoprolol Tartrate 25 MG Oral Tablet; TAKE 1 TABLET DAILY. Start: 26-May-2016 Refills: 0 Vitamin D3 25 MCG (1000 UT) Oral Capsule; TAKE DIRECTED. Start: 26-May-2016 Refills: 0 Effexor XR 37.5 MG Oral Capsule Extended Release 24 Hour; TAKE 1 CAPSULE ONCE DAILY WITH FOOD. Start: 18-Jan-2017 Refills: 0 Vitamin C 500 MG Oral Capsule Start: Refills: 0 Vitamin E 100 UNIT Oral Capsule Start: Refills: 0 MegaRed [place]-3 Krill Oil 500 MG Oral Capsule Start: 18-Jan-2017 Refills: 0 Escitalopram Oxalate 10 MG Oral Tablet; TAKE 1 TABLET DAILY. Start: 26-May-2016 Refills: 0 Lisinopril 2.5 MG Oral Tablet; TAKE 1 TABLET DAILY DIRECT ED. Start: 26-May-2016 Refills: 0 LORazepam 1 MG Oral Tablet; TAKE 1 TABLET 3 times daily PRN Start: 26-May-2016 Refills: 0 Amoxicillin-Pot Clavulanate 875-125 MG O ral Tablet; TAKE 1 TABLET EVERY 12 HOURS DAILY. KIA Moralez Start: 02-Feb-2017 Quantity: 14 Refills: 0 Gabapentin 100 MG Oral Capsule; TAKE 1 CAPSULE 3 TIMES DAILY. KIA Moralez Start: 29-Jun-2016 Quantity: 150 Refills: 2 Procedures History of Tonsillectomy Status: Complet ed History of Hysterectomy Status: Complete d History of Central IV Child Age 3 Or Older W/ Status: Completed Tunneling & Subcutan Port History of Breast Surgery Mastectomy Sta tus: Completed History of Breast Surgery Reconstruction Status: Completed History of Thoracoscopy (Therapeutic) With Status: Completed 11-Jun-2016 0:00 Mediastinal And Regional Lymphadenectomy Immunizations Immunizations not documented Family History Mother Family history of hypertension (V17.49) (Z82.49) Status: Act jesus Family history of diabetes mellitus (V18.0) (Z83.3) Status: Active Brother Family history of hypertension (V17.49) (Z82.49) Status: Act jesus Father Family history of myocardial infarction (V17.3) (Z82.49) Sta tus: Active Social History - Smoking Status Never smoker Plan of Treatment Planned Observations Planned Goals not documented Results No Known Results Results not documented
[2019-09-30] MEDS ORDERED: SODIUM CHLORIDE 0.9% 500 ML IV SCH (21:45)
--- NOTE | 2019-09-30 21:48 | XRay Report ---
XR chest 1V portable CLINICAL HISTORY: 54 years-old Female presenting with palpitations. TECHNIQUE: Portable upright AP view of the chest was obtained. COMPARISON: 08/22/2017. FINDINGS: Right-sided port terminates in the mid SVC. Mediastinal surgical clips noted. Cardiomediastinal silho uette normal. Pleural parenchymal scarring at the right apex. No new focal opacity. No large effusion or pneumothorax. Bilateral breast implants may be present. Osseous structures normal. Upper abdomen normal. IMPRESSION: 1. No acute cardiopulmonary disease. ACT 112: Negative or not required by law. Electronically signed by: Sotero Wilson M.D. 09/30/2019 9:46 PM
[2019-09-30] MEDS ORDERED: LORazepam 0.5 MG/1 ML VIAL IV STA (21:57)
[2019-09-30 22:04] LABS: Hemoglobin 11.7 g/dL (12.0-16.0); Mean Corpuscular Hemoglobin 25.8 pg (25-34); Mean Corpuscular Hgb Conc 33.4 g/dL (32-36); Mean Corpuscular Volume 77.3 fL (80-100); Mean Platelet Volume 8.5 fL (7.4-10.4); Platelet Count 132 K/uL (130-400); RDW Coefficient of Variation 16.5 % (11.5-14.5); RDW Standard Deviation 46.4 fL (36.4-46.3); Red Blood Count 4.53 M/uL (4.2-5.4); White Blood Count 3.93 K/uL (4.8-10.8)
[2019-09-30 22:24] LABS: INR 1.1 (0.9-1.1); Prothrombin Time 11.1 Seconds (9.0-12.0)
[2019-09-30 22:27] LABS: Basophils # (auto) 0.01 K/uL (0-0.2); Basophils % (auto) 0.3 %; Eosinophils # (auto) 0.15 K/uL (0-0.5); Eosinophils % (auto) 3.8 %; Lymphocytes % (auto) 50.9 %; Monocytes # (auto) 0.43 K/uL (0.11-0.59); Monocytes % (auto) 10.9 %; Neutrophils # (auto) 1.34 K/uL (1.4-6.5); Neutrophils % (auto) 34.1 %; Schistocytes 1+
[2019-09-30 22:28] LABS: Blood Urea Nitrogen 10 mg/dl (7-18); Carbon Dioxide 27 mmol/L (21-32); Chloride 87 mmol/L (98-107); Est GFR (African American) 103.3; Est GFR (Non-African American) 89.1; Potassium 3.4 mmol/L (3.5-5.1); Sodium 123 mmol/L (136-145)
[2019-09-30 22:29] LABS: Alanine Aminotransferase 69 U/L (12-78); Albumin Level 3.5 gm/dl (3.4-5.0); Aspartate Aminotransferase 70 U/L (15-37); BUN Creatinine Ratio 12.7 (10-20); Calcium 9.3 mg/dl (8.5-10.1); Glucose 90 mg/dl (70-99); Magnesium 1.3 mg/dl (1.8-2.4)
[2019-09-30 22:39] LABS: Albumin Globulin Ratio 0.9 (0.9-2); Alkaline Phosphatase 91 U/L (45-117); Bilirubin,Total 0.8 mg/dl (0.2-1); Globulin 3.8 gm/dl (2.5-4.0); Total Protein 7.3 gm/dl (6.4-8.2); Troponin I < 0.015 ng/ml (0-0.045)
[2019-09-30] MEDS ORDERED: MAGNESIUM SULFATE / D5W 1 GM/100 ML BAG IV ONE (22:56)
[2019-09-30] MEDS ORDERED: POTASSIUM CHLORIDE 20 MEQ TABCR PO STA (23:15)
[2019-09-30 23:37] LABS: Appearance Urine Clear (Clear); Bilirubin Urine Negative (Negative); Blood Urine Negative (Negative); Color Urine Yellow; Glucose Urine UA Negative (Negative); Ketones Urine Trace (Negative); Leukocyte Esterase Urine Negative (Negative); Nitrite Urine Negative (Negative); Protein Urine Negative (Negative); Specific Gravity Urine 1.005 (1.000-1.030); Urobilinogen Urine Negative (Negative); pH Urine 7.5 (4.5-7.5)
--- NOTE | 2019-09-30 23:58 | History & Physical Report ---
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 Lovenox subcu Full code Patient's requesting updates for providers. Mr. Joey Fuller, contact #[phone]. History of Present Illness Chief Complaint: Palpitations Primary Care Provider: Alexandra Berman, History obtained from patient, family, and records. 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 Patient noted chest palpitations this afternoon without chest pain and S OB. Usual dancing activity at home to [employer] music. No unusual fluid retention. thinks patient does not eat as much as she should. No diary symptoms. Patient brought to the ER for evaluation. Medical History as above Surgical History : Hysterectomy, bilateral mastectomy, breast reconstruction, vascular procedure, tonsillectomy Family History : Lung cancer, heart disease, high blood pressure Personal/Social history : Non-smoker, occasional EtOH intake, prior work at [employer], currently disabled Allergies Allergy/AdvReac Type Severity Reaction Status Date / Time animal dander Allergy Mild HIVES Unverified 09/30/19 22:02 aspirin Allergy Unknown ? NAUSEA Verified 09/30/19 22:02 orphenadrine Allergy Unknown ? NAUSEA Verified 09/30/19 22:02 caffeine [From Norgesic] Allergy Unknown Verified 09/30/19 22:04 ondansetron [From Zofran] AdvReac Intermediate NAUSEA/VOMI Verified 09/30/19 22:02 TING prochlorperazine AdvReac MAKES A Verified 09/30/19 22:04 [From Compazine] FEEL DIFFERENT SUNSCREEN Allergy Severe Rash Uncoded 09/30/19 22:02 Home Medications Home Medications Medication Instructions Recorded Confirmed Type B-complex with vitamin C [Super B 1 tab PO DAILY 09/30/19 09/30/19 History Complex-Vitamin C] aspirin [Aspir-81] 81 mg PO DAILY 09/30/19 09/30/19 History atorvastatin [Lipitor] 20 mg PO DAILY 09/30/19 09/30/19 History carvedilol [Coreg] 6.25 mg PO BID 09/30/19 09/30/19 History cholecalciferol (vitamin D3) 3,000 unit PO DAILY 09/30/19 09/30/19 History [Vitamin D3] eplerenone [Inspra] 12.5 mg PO DAILY 09/30/19 09/30/19 History escitalopram oxalate 20 mg PO DAILY 09/30/19 09/30/19 History gabapentin 100 mg PO TID 09/30/19 09/30/19 History yttgj-lh-4-ezi-drq-nywxatk-ast 1 cap PO DAILY 09/30/19 09/30/19 History [krill oil] lidocaine-prilocaine 1 applic TOPICAL UD PRN 09/30/19 09/30/19 History lisinopril 5 mg PO Q12 09/30/19 09/30/19 History lorazepam 1 mg PO TID PRN 09/30/19 09/30/19 History milk thistle 0 mg PO DAILY 09/30/19 09/30/19 History huyfhalf-hoi-BJ-lycopen-lutein 1 tab PO DAILY 09/30/19 09/30/19 History [Centrum Silver] sennosides-docusate sodium 1 tab-cap PO HS PRN 09/30/19 09/30/19 History [Senna-S] vit C,C-Hz-lvjln-lutein-zeaxan 2 tab PO BID 09/30/19 09/30/19 History [PreserVision AREDS-2] Past Med/Surg History Medical History Neuropathy Social History Preferred Language: Burmese Communication Ability: Effective Calculation Clerk Required: No Beliefs That Will Affect Care: None marital status: Current Living Situation: Family Other Information That Helps Us Care for You: No Feels Safe at Home: Yes Safety Concerns: Feels Safe At This Time Smoking Status: Never smoker Hx Alcohol Use: No Hx Substance Use: No Review of Systems Review of Systems: As per HPI, all 10 systems reviewed, all other ROS negative Physical Exam Physical Exam: GENERAL: Comfortable, wane, pleasant, no respiratory distress SKIN: Pallor , warm HEENT: Alopecia, pale palpebral conjunctivae, no ptosis, dry buccal mucosa NECK : Supple, no tenderness CHEST : CTA, no tenderness HEART : RRR, no obvious murmurs ABDOMEN: Soft, nontender EXTREMITIES : No LE swelling/tenderness, no other conspicuous deformities noted NEUROLOGIC : Coherent, no facial asymmetry, no other gross focality Results & Data Vital Signs (Past 12 Hours) Vital Signs Temp Pulse Pulse Resp BP BP Pulse Ox 09/30/19 23:13 83 20 110/70 99 09/30/19 22:21 72 73 20 115/73 99 09/30/19 22:10 76 20 118/73 97 09/30/19 21:35 100 09/30/19 21:24 83 21 100 09/30/19 21:18 100 09/30/19 21:04 36.7 C 87 20 139/88 100 Laboratory Results Laboratory Results WBC 3.93 K/uL (4.8-10.8) L 09/30/19 21:54 RBC 4.53 M/uL (4.2-5.4) 09/30/19 21:54 Hgb 11.7 g/dL (12.0-16.0) L 09/30/19 21:54 Hct 35.0 % (37-47) L 09/30/19 21:54 MCV 77.3 fL (80-100) L 09/30/19 21:54 MCH 25.8 pg (25-34) 09/30/19 21:54 MCHC 33.4 g/dL (32-36) 09/30/19 21:54 RDW Std Deviation 46.4 fL (36.4-46.3) H 09/30/19 21:54 RDW Coeff of Rickie 16.5 % (11.5-14.5) H 09/30/19 21:54 Plt Count 132 K/uL (130-400) 09/30/19 21:54 MPV 8.5 fL (7.4-10.4) 09/30/19 21:54 Immature Gran % (Auto) 0.0 % 09/30/19 21:54 Neut % (Auto) 34.1 % 09/30/19 21:54 Lymph % (Auto) 50.9 % 09/30/19 21:54 [place] % (Auto) 10.9 % 09/30/19 21:54 Eos % (Auto) 3.8 % 09/30/19 21:54 Baso % (Auto) 0.3 % 09/30/19 21:54 Immature Gran # (Auto) 0.00 K/uL (0.00-0.02) 09/30/19 21:54 Neut # (Auto) 1.34 K/uL (1.4-6.5) L 09/30/19 21:54 Lymph # (Auto) 2.00 K/uL (1.2-3.4) 09/30/19 21:54 [place] # (Auto) 0.43 K/uL (0.11-0.59) 09/30/19 21:54 Eos # (Auto) 0.15 K/uL (0-0.5) 09/30/19 21:54 Baso # (Auto) 0.01 K/uL (0-0.2) 09/30/19 21:54 Schistocytes 1+ 09/30/19 21:54 PT 11.1 Seconds (9.0-12.0) 09/30/19 21:54 INR 1.1 (0.9-1.1) 09/30/19 21:54 Sodium 123 mmol/L (136-145) L 09/30/19 21:54 Potassium 3.4 mmol/L (3.5-5.1) L 09/30/19 21:54 Chloride 87 mmol/L (98-107) L 09/30/19 21:54 Carbon Dioxide 27 mmol/L (21-32) 09/30/19 21:54 Anion Gap 9.0 (3-11) 09/30/19 21:54 BUN 10 mg/dl (7-18) 09/30/19 21:54 Creatinine 0.75 mg/dl (0.6-1.2) 09/30/19 21:54 Est Cr Clr Drug Dosing Not Reportable 09/30/19 21:54 Est GFR ( Amer) 103.3 09/30/19 21:54 Est GFR (Non-Af Amer) 89.1 09/30/19 21:54 BUN/Creatinine Ratio 12.7 (10-20) 09/30/19 21:54 Glucose 90 mg/dl (70-99) 09/30/19 21:54 Osmolality 259 mOsm/kg (280-300) L 09/30/19 21:32 Calcium 9.3 mg/dl (8.5-10.1) 09/30/19 21:54 Magnesium 1.3 mg/dl (1.8-2.4) L 09/30/19 21:54 Total Bilirubin 0.8 mg/dl (0.2-1) 09/30/19 21:54 AST 70 U/L (15-37) H 09/30/19 21:54 ALT 69 U/L (12-78) 09/30/19 21:54 Alkaline Phosphatase 91 U/L (45-117) 09/30/19 21:54 Troponin I < 0.015 ng/ml (0-0.045) 09/30/19 21:54 Total Protein 7.3 gm/dl (6.4-8.2) 09/30/19 21:54 Albumin 3.5 gm/dl (3.4-5.0) 09/30/19 21:54 Globulin 3.8 gm/dl (2.5-4.0) 09/30/19 21:54 Albumin/Globulin Ratio 0.9 (0.9-2) 09/30/19 21:54 TSH 2.750 uIu/ml (0.300-4.500) 09/30/19 21:54 Urine Color Yellow 09/30/19 23:13 Urine Appearance Clear (Clear) 09/30/19 23:13 Urine pH 7.5 (4.5-7.5) 09/30/19 23:13 Ur Specific [place] 1.005 (1.000-1.030) 09/30/19 23:13 Urine Protein Negative (Negative) 09/30/19 23:13 Urine Glucose (UA) Negative (Negative) 09/30/19 23:13 Urine Ketones Trace (Negative) H 09/30/19 23:13 Urine Blood Negative (Negative) 09/30/19 23:13 Urine Nitrite Negative (Negative) 09/30/19 23:13 Urine Bilirubin Negative (Negative) 09/30/19 23:13 Urine Urobilinogen Negative (Negative) 09/30/19 23:13 Ur Leukocyte Esterase Negative (Negative) 09/30/19 23:13 Urine Osmolality 106 mOsm/kg (500-800) L 09/30/19 23:13 Ur Random Sodium 29 mmol/L 09/30/19 23:13 Diagnostic Findings Chest x-ray : No acute abnormality EKG as per my interpretation : Rate 80, NSR, normal axis, no ischemia, PACs
--- NOTE | 2019-10-01 00:26 | Emergency Department Note ---
Entered by Ashley Elliott acting as a scribe for Ricardo Shabazz M.D. History of Present Illness General Chief complaint: Arrhythmia/Palpitations Stated complaint: HEART PALPITATIONS Time Seen by Provider: 09/30/19 21:09 Source: patient and family History of Present Illness Onset (ago): hour(s) (4:30PM today ) Location: chest (arrhythmia/palpitations) Pain Consistency: + constant Associated symptoms: + denies other symptoms (increased fatigue from baseline, diarrhea, swelling, abdominal pain) and + other (somewhat thirsty); no chest pain, no fever/chills and no shortness of breath The patient is a 54 year old female with a history of breast cancer stage 3, s/p bilateral mastectomy, and chemotherapy treatment who presents to the Emergency Room with complaints of arrhythmia/palpitations. The patient states that her blood counts have recently been low so she did not have chemotherapy this past Tuesday as scheduled. Acutely at home today around 4:30PM she began to experience heart palpitations but she does not have a history of this. She reports that she drinks 1 cup of caffeinated tea daily but has not recently changed this regimen. Currently the patient reports feeling somewhat thirsty but not more fatigued than normal. She also has neuropathy in her hands and feet at baseline. The patient admits to taking all of her prescribed medications accordingly without any missed doses. Of note, she also has a resolving healing upper back cyst. Additionally, she did not have any trouble with PO today and has not had any known recent sickness exposure. She denies chills, fever, diarrhea, swelling, abdominal pain, chest pain, and shortness of breath. The patient offers no further concerns at this time. Home Medications Home Medications Medication Instructions Recorded Confirmed Type B-complex with vitamin C [Super B 1 tab PO DAILY 09/30/19 09/30/19 History Complex-Vitamin C] aspirin [Aspir-81] 81 mg PO DAILY 09/30/19 09/30/19 History atorvastatin [Lipitor] 20 mg PO DAILY 09/30/19 09/30/19 History carvedilol [Coreg] 6.25 mg PO BID 09/30/19 09/30/19 History cholecalciferol (vitamin D3) 3,000 unit PO DAILY 09/30/19 09/30/19 History [Vitamin D3] eplerenone [Inspra] 12.5 mg PO DAILY 09/30/19 09/30/19 History escitalopram oxalate 20 mg PO DAILY 09/30/19 09/30/19 History gabapentin 100 mg PO TID 09/30/19 09/30/19 History azkmi-qm-5-bfx-lda-szgcvyl-ast 1 cap PO DAILY 09/30/19 09/30/19 History [krill oil] lidocaine-prilocaine 1 applic TOPICAL UD PRN 09/30/19 09/30/19 History lisinopril 5 mg PO Q12 09/30/19 09/30/19 History lorazepam 1 mg PO TID PRN 09/30/19 09/30/19 History milk thistle 0 mg PO DAILY 09/30/19 09/30/19 History pziadnbp-tpd-KF-lycopen-lutein 1 tab PO DAILY 09/30/19 09/30/19 History [Centrum Silver] sennosides-docusate sodium 1 tab-cap PO HS PRN 09/30/19 09/30/19 History [Senna-S] vit C,B-Yw-qjzpz-lutein-zeaxan 2 tab PO BID 09/30/19 09/30/19 History [PreserVision AREDS-2] Allergies Allergy/AdvReac Type Severity Reaction Status Date / Time animal dander Allergy Mild HIVES Unverified 09/30/19 22:02 aspirin Allergy Unknown ? NAUSEA Verified 09/30/19 22:02 orphenadrine Allergy Unknown ? NAUSEA Verified 09/30/19 22:02 caffeine [From Norgesic] Allergy Unknown Verified 09/30/19 22:04 ondansetron [From Zofran] AdvReac Intermediate NAUSEA/VOMI Verified 09/30/19 22:02 TING prochlorperazine AdvReac MAKES A Verified 09/30/19 22:04 [From Compazine] FEEL DIFFERENT SUNSCREEN Allergy Severe Rash Uncoded 09/30/19 22:02 Past Med/Surg History Medical History Neuropathy Social History Preferred Language: Moroccan Feels Safe at Home: Yes Smoking Status: Never smoker Review of Systems See HPI for pertinent positives & negatives. and A total of 10 systems reviewed and were otherwise negative Physical Exam Vital Signs Vital Signs - 24 hr 09/30/19 21:04 09/30/19 21:18 09/30/19 21:24 Temperature 36.7 C Temperature Source Oral Pulse Rate 87 83 Pulse Rate [Finger] Pulse Rhythm Regular Pulse Rhythm [Finger] Pulse Strength [Finger] Respiratory Rate 20 21 Respiratory Effort / Characteristics Non-Labored Spontaneous Respiratory Depth Normal Respiratory Pattern Blood Pressure 139/88 Blood Pressure [Left Arm] Blood Pressure Mean 105 Blood Pressure Mean [Left Arm] Blood Pressure Position [Left Arm] Pulse Oximetry 100 100 100 Oxygen Delivery Method Room Air Room Air Room Air Sepsis Action Taken by Nursing No Action Required 09/30/19 21:35 09/30/19 22:10 09/30/19 22:21 Temperature Temperature Source Pulse Rate 72 Pulse Rate [Finger] 76 73 Pulse Rhythm Regular Pulse Rhythm [Finger] Regular Regular Pulse Strength [Finger] Normal Normal Respiratory Rate 20 20 Respiratory Effort / Characteristics Non-Labored Spontaneous Non-Labored Spontaneous Respiratory Depth Normal Normal Respiratory Pattern Regular Blood Pressure Blood Pressure [Left Arm] 118/73 115/73 Blood Pressure Mean Blood Pressure Mean [Left Arm] 88 87 Blood Pressure Position [Left Arm] Lying Lying Pulse Oximetry 100 97 99 Oxygen Delivery Method Room Air Room Air Room Air Sepsis Action Taken by Nursing 09/30/19 23:13 Temperature Temperature Source Pulse Rate Pulse Rate [Finger] 83 Pulse Rhythm Pulse Rhythm [Finger] Regular Pulse Strength [Finger] Normal Respiratory Rate 20 Respiratory Effort / Characteristics Non-Labored Spontaneous Respiratory Depth Normal Respiratory Pattern Regular Blood Pressure Blood Pressure [Left Arm] 110/70 Blood Pressure Mean Blood Pressure Mean [Left Arm] 83 Blood Pressure Position [Left Arm] Lying Pulse Oximetry 99 Oxygen Delivery Method Room Air Sepsis Action Taken by Nursing GENERAL: Awake, alert, appears mildly anxious, thin in appearance, in no distress HENT: Normocephalic, atraumatic. EYES: Normal conjunctiva. Sclera non-icteric. NECK: Supple. No nuchal rigidity. RESPIRATORY: Clear to auscultation. Normal respiratory effort. CARDIAC: Normal rate. Rhythm is occasionally irregular. Extremities warm and well perfused. GI: Soft, non-distended. No tenderness to palpation. MUSCULOSKELETAL: Atraumatic. Chest examination reveals no tenderness. Right upper chest wall port. Prior breast surgical changes. LOWER EXTREMITIES: Calves are equal size bilaterally and non-tender. No edema NEURO: Normal sensorium. No sensory or motor deficits noted. No facial droop. SKIN: Warm and dry. Course Course 2117: Past medical records reviewed. The patient was evaluated in room B02. A co mplete history and physical exam was performed. 2249: I checked on the patient and updated her on test results. 2299: I spoke with Dr. Miller who will further evaluate the patient. 2309: I re-checked the patient and updated her on plan to admit.The patient verbally expressed understanding and agreement of the treatment plan. The patient will be evaluated for further treatment. Administered Medications Discontinued Medications Sodium Chloride (Nss) 500 mls @ 999 mls/hr IV .Q31M DARREL Stop: 09/30/19 22:15 Last Infusion: 09/30/19 22:33 Dose: 0 mls/hr Documented by: [id number] Admin: 09/30/19 22:01 Dose: 999 mls/hr Documented by: [id number] Lorazepam (Ativan) 0.5 mg in 1 mls @ 1 mls/min IV NOW STA Stop: 09/30/19 21:58 Last Admin: 09/30/19 22:01 Dose: 1 mls/min Documented by: [id number] Magnesium Sulfate/Dextrose (Magnesium Sulfate / D5w) 1 gm in 100 mls @ 100 mls/hr IV ONE ONE Stop: 09/30/19 23:55 Last Infusion: 10/01/19 00:18 Dose: 0 mls/hr Documented by: [id number] Admin: 09/30/19 23:18 Dose: 100 mls/hr Documented by: [id number] Potassium Chloride (Klor-Con M20) 40 meq PO NOW STA Stop: 09/30/19 23:16 Last Admin: 09/30/19 23:21 Dose: 40 meq Documented by: [id number] Medical Decision Making Differential Diagnosis Differential diagnosis includes etiologies such as premature contractions, electrolyte abnormality, cardiac dysrhythmia, thyroid dysfunction, pulmonary embolism, infection, gastrointestinal, as well as others were entertained. Medical Records Attestation: I reviewed the patient's medical records. Home Medications Current Medication List: was personally reviewed by me Laboratory Data Attestation: I reviewed the patient's lab results. Result diagrams: 09/30/19 21:54 01/19/20 21:54 Lab Results 09/30/19 09/30/19 09/30/19 Range/Units 21:32 21:54 21:54 WBC 3.93 L (4.8-10.8) K/uL RBC 4.53 (4.2-5.4) M/uL Hgb 11.7 L (12.0-16.0) g/dL Hct 35.0 L (37-47) % MCV 77.3 L (80-100) fL MCH 25.8 (25-34) pg MCHC 33.4 (32-36) g/dL RDW Std Deviation 46.4 H (36.4-46.3) fL RDW Coeff of Rickie 16.5 H (11.5-14.5) % Plt Count 132 (130-400) K/uL MPV 8.5 (7.4-10.4) fL Immature Gran % (Auto) 0.0 % Neut % (Auto) 34.1 % Lymph % (Auto) 50.9 % [place] % (Auto) 10.9 % Eos % (Auto) 3.8 % Baso % (Auto) 0.3 % Immature Gran # (Auto) 0.00 (0.00-0.02) K/uL Neut # (Auto) 1.34 L (1.4-6.5) K/uL Lymph # (Auto) 2.00 (1.2-3.4) K/uL [place] # (Auto) 0.43 (0.11-0.59) K/uL Eos # (Auto) 0.15 (0-0.5) K/uL Baso # (Auto) 0.01 (0-0.2) K/uL Schistocytes 1+ PT 11.1 (9.0-12.0) Seconds INR 1.1 (0.9-1.1) Sodium (136-145) mmol/L Potassium (3.5-5.1) mmol/L Chloride (98-107) mmol/L Carbon Dioxide (21-32) mmol/L Anion Gap (3-11) BUN (7-18) mg/dl Creatinine (0.6-1.2) mg/dl Est Cr Clr Drug Dosing Est GFR ( Amer) Est GFR (Non-Af Amer) BUN/Creatinine Ratio (10-20) Glucose (70-99) mg/dl Osmolality 259 L (280-300) mOsm/kg Calcium (8.5-10.1) mg/dl Magnesium (1.8-2.4) mg/dl Total Bilirubin (0.2-1) mg/dl AST (15-37) U/L ALT (12-78) U/L Alkaline Phosphatase (45-117) U/L Troponin I (0-0.045) ng/ml Total Protein (6.4-8.2) gm/dl Albumin (3.4-5.0) gm/dl Globulin (2.5-4.0) gm/dl Albumin/Globulin Ratio (0.9-2) TSH (0.300-4.500) uIu/ml Urine Color Urine Appearance (Clear) Urine pH (4.5-7.5) Ur Specific [place] (1.000-1.030) Urine Protein (Negative) Urine Glucose (UA) (Negative) Urine Ketones (Negative) Urine Blood (Negative) Urine Nitrite (Negative) Urine Bilirubin (Negative) Urine Urobilinogen (Negative) Ur Leukocyte Esterase (Negative) Urine Osmolality (500-800) mOsm/kg Ur Random Sodium mmol/L 09/30/19 09/30/19 09/30/19 Range/Units 21:54 23:13 23:13 WBC (4.8-10.8) K/uL RBC (4.2-5.4) M/uL Hgb (12.0-16.0) g/dL Hct (37-47) % MCV (80-100) fL MCH (25-34) pg MCHC (32-36) g/dL RDW Std Deviation (36.4-46.3) fL RDW Coeff of Rickie (11.5-14.5) % Plt Count (130-400) K/uL MPV (7.4-10.4) fL Immature Gran % (Auto) % Neut % (Auto) % Lymph % (Auto) % [place] % (Auto) % Eos % (Auto) % Baso % (Auto) % Immature Gran # (Auto) (0.00-0.02) K/uL Neut # (Auto) (1.4-6.5) K/uL Lymph # (Auto) (1.2-3.4) K/uL [place] # (Auto) (0.11-0.59) K/uL Eos # (Auto) (0-0.5) K/uL Baso # (Auto) (0-0.2) K/uL Schistocytes PT (9.0-12.0) Seconds INR (0.9-1.1) Sodium 123 L (136-145) mmol/L Potassium 3.4 L (3.5-5.1) mmol/L Chloride 87 L (98-107) mmol/L Carbon Dioxide 27 (21-32) mmol/L Anion Gap 9.0 (3-11) BUN 10 (7-18) mg/dl Creatinine 0.75 (0.6-1.2) mg/dl Est Cr Clr Drug Dosing Not Reportable Est GFR ( Amer) 103.3 Est GFR (Non-Af Amer) 89.1 BUN/Creatinine Ratio 12.7 (10-20) Glucose 90 (70-99) mg/dl Osmolality (280-300) mOsm/kg Calcium 9.3 (8.5-10.1) mg/dl Magnesium 1.3 L (1.8-2.4) mg/dl Total Bilirubin 0.8 (0.2-1) mg/dl AST 70 H (15-37) U/L ALT 69 (12-78) U/L Alkaline Phosphatase 91 (45-117) U/L Troponin I < 0.015 (0-0.045) ng/ml Total Protein 7.3 (6.4-8.2) gm/dl Albumin 3.5 (3.4-5.0) gm/dl Globulin 3.8 (2.5-4.0) gm/dl Albumin/Globulin Ratio 0.9 (0.9-2) TSH 2.750 (0.300-4.500) uIu/ml Urine Color Yellow Urine Appearance Clear (Clear) Urine pH 7.5 (4.5-7.5) Ur Specific [place] 1.005 (1.000-1.030) Urine Protein Negative (Negative) Urine Glucose (UA) Negative (Negative) Urine Ketones Trace H (Negative) Urine Blood Negative (Negative) Urine Nitrite Negative (Negative) Urine Bilirubin Negative (Negative) Urine Urobilinogen Negative (Negative) Ur Leukocyte Esterase Negative (Negative) Urine Osmolality 106 L (500-800) mOsm/kg Ur Random Sodium mmol/L 09/30/19 Range/Units 23:13 WBC (4.8-10.8) K/uL RBC (4.2-5.4) M/uL Hgb (12.0-16.0) g/dL Hct (37-47) % MCV (80-100) fL MCH (25-34) pg MCHC (32-36) g/dL RDW Std Deviation (36.4-46.3) fL RDW Coeff of Rickie (11.5-14.5) % Plt Count (130-400) K/uL MPV (7.4-10.4) fL Immature Gran % (Auto) % Neut % (Auto) % Lymph % (Auto) % [place] % (Auto) % Eos % (Auto) % Baso % (Auto) % Immature Gran # (Auto) (0.00-0.02) K/uL Neut # (Auto) (1.4-6.5) K/uL Lymph # (Auto) (1.2-3.4) K/uL [place] # (Auto) (0.11-0.59) K/uL Eos # (Auto) (0-0.5) K/uL Baso # (Auto) (0-0.2) K/uL Schistocytes PT (9.0-12.0) Seconds INR (0.9-1.1) Sodium (136-145) mmol/L Potassium (3.5-5.1) mmol/L Chloride (98-107) mmol/L Carbon Dioxide (21-32) mmol/L Anion Gap (3-11) BUN (7-18) mg/dl Creatinine (0.6-1.2) mg/dl Est Cr Clr Drug Dosing Est GFR ( Amer) Est GFR (Non-Af Amer) BUN/Creatinine Ratio (10-20) Glucose (70-99) mg/dl Osmolality (280-300) mOsm/kg Calcium (8.5-10.1) mg/dl Magnesium (1.8-2.4) mg/dl Total Bilirubin (0.2-1) mg/dl AST (15-37) U/L ALT (12-78) U/L Alkaline Phosphatase (45-117) U/L Troponin I (0-0.045) ng/ml Total Protein (6.4-8.2) gm/dl Albumin (3.4-5.0) gm/dl Globulin (2.5-4.0) gm/dl Albumin/Globulin Ratio (0.9-2) TSH (0.300-4.500) uIu/ml Urine Color Urine Appearance (Clear) Urine pH (4.5-7.5) Ur Specific [place] (1.000-1.030) Urine Protein (Negative) Urine Glucose (UA) (Negative) Urine Ketones (Negative) Urine Blood (Negative) Urine Nitrite (Negative) Urine Bilirubin (Negative) Urine Urobilinogen (Negative) Ur Leukocyte Esterase (Negative) Urine Osmolality (500-800) mOsm/kg Ur Random Sodium 29 mmol/L Imaging Data Radiologist's Impression: Radiology results as stated below per my review and the radiologist's interpretation: XR chest 1V portable CLINICAL HISTORY: 54 years-old Female presenting with palpitations. TECHNIQUE: Portable upright AP view of the chest was obtained. COMPARISON: 08/22/2017. FINDINGS: Right-sided port terminates in the mid SVC. Mediastinal surgical clips noted. Cardiomediastinal silhouette normal. Pleural parenchymal scarring at the right apex. No new focal opacity. No large effusion or pneumothorax. Bilateral breast implants may be present. Osseous structures normal. Upper abdomen normal. IMPRESSION: 1. No acute cardiopulmonary disease. ACT 112: Negative or not required by law. Electronically signed by: Sotero Wilson M.D. 09/30/2019 9:46 PM ECG Data Attestation: I personally reviewed and interpreted this ECG as follows: Indication: + palpitations Rate (beats per minute): 78 Rhythm: + sinus rhythm ECG Intervals/blocks: + Normal QRS and + Normal QT-c ECG [place]: + Normal ECG ST segments: no ST elevation ECG Findings: + PACs; no PVCs Blood Pressure Blood Pressure Findings: Low blood pressure Blood Pressure Disposition: further management by hospitalist REMI Narrative Patient is a 54-year-old female with a past medical history breast cancer currently on chemotherapy presenting today complaining of heart palpitations. Started around 430p. Denies any pain. Not hypoxic or tachycardic upon arrival here with a normal blood pressure. Patient states onset of palpitations without other significant associated symptoms although she states she does feel a bit anxious. Normally takes her as needed Ativan at night to help with sleep and has not taken any additional today. No significant leg swelling chest pain or shortness of breath reported. No history of similar. EKG with sinus arrhythmia without significant tachycardia. Doubt this represents PE with her only symptom mainly being some palpitations. Basic blood work chest x-ray and EKG again were obtained. X-ray without acute findings. No significant anemia. No evidence of significant thyroid dysfunction. Troponins negative. Hypomagnesemia noted as well as some mild hypokalemia and fairly significant hyponatremia is noted. This appears acute given how anxious she is appearing I did give her a dose of Ativan here. I have some symptomatology of electrolyte abnormalities. Received 500 mls of normal saline here. Gram of IV magnesium ordered. Defer additional electrolyte management to the inpatient team. [facility] hospitalist contacted. Urinalysis serum osm and urine sodium ordered. Impression & Plan Acute hyponatremia, Palpitations, Hypomagnesemia Discharge Plan Visit Data Chief Complaint: Arrhythmia/Palpitations Stated Complaint: HEART PALPITATIONS ED Provider: Ricardo Shabazz Discharge Problem: Acute hyponatremia, Palpitations, Hypomagnesemia Patient Disposition: Being Evaluated by Hospitalist Forms Stand Alone Forms: My [facility] Prescriptions Prescriptions: No Action atorvastatin [Lipitor] 20 mg tablet 20 mg PO DAILY RF: 0 sennosides-docusate sodium [Senna-S] 8.6-50 mg Tablet 1 tab-cap PO HS PRN (Reason: Constipation) RF: 0 aspirin [Aspir-81] 81 mg Tablet,Delayed Release (Dr/Ec) 81 mg PO DAILY RF: 0 carvedilol [Coreg] 3.125 mg tablet 6.25 mg PO BID RF: 0 lidocaine-prilocaine 2.5-2.5 % cream 1 applic topical UD PRN (Reason: MEDIPORT) RF: 0 milk thistle 150 mg Capsule 0 mg PO DAILY RF: 0 lisinopril 5 mg tablet 5 mg PO Q12 RF: 0 gabapentin 100 mg Capsule 100 mg PO TID RF: 0 lorazepam 1 mg tablet 1 mg PO TID PRN (Reason: Anxiety) RF: 0 B-complex with vitamin C [Super B Complex-Vitamin C] Tablet 1 tab PO DAILY RF: 0 escitalopram oxalate 20 mg tablet 20 mg PO DAILY RF: 0 eplerenone [Inspra] 25 mg tablet 12.5 mg PO DAILY RF: 0 Centrum Silver 0.4-300-250 mg-mcg-mcg Tablet 1 tab PO DAILY RF: 0 cholecalciferol (vitamin D3) [Vitamin D3] 25 mcg (1,000 unit) Tablet,Chewable 3,000 unit PO DAILY RF: 0 PreserVision AREDS-2 [id number] fv-xahl-vm-mg Capsule 2 tab PO BID RF: 0 qiqzj-qa-9-pbf-jjf-epixovc-ast [krill oil] [id number],594-284-05-80 mg Capsule 1 cap PO DAILY RF: 0 Referrals Referrals: Alexandra Berman, DO [Primary Care Provider] - The scribe's documentation has been prepared under my direction and personally reviewed by me in its entirety. I confirm that the note above accurately reflects all work, treatment, procedures, and medical decision making performed by me.
[2019-10-01] MEDS ORDERED: OXYCODONE HCL IR 5 MG TAB (IMMEDIATE RELEASE) PO PRN (03:07)
[2019-10-01] MEDS ORDERED: LORazepam 0.25 MG/0.5 ML VIAL IV PRN (03:07)
[2019-10-01] MEDS ORDERED: LIDOCAINE/PRILOCAINE 2.5% EA CRM EXT PRN (03:07)
[2019-10-01] MEDS ORDERED: lisinopriL 5 MG TAB PO SCH (03:07)
[2019-10-01] MEDS ORDERED: METOCLOPRAMIDE HCL INJ 5 MG/ML 2 ML VIAL IV PRN (03:07)
[2019-10-01] MEDS ORDERED: NITROGLYCERIN SL 0.4 MG/TAB TAB SL PRN (03:07)
[2019-10-01] MEDS ORDERED: DOCUSATE SODIUM/SENNA 50/8.6MG TAB PO PRN (03:07)
[2019-10-01] MEDS ORDERED: ACETAMINOPHEN 325 MG TAB PO PRN (03:07)
[2019-10-01] MEDS ORDERED: POTASSIUM CHLORIDE 20 MEQ TABCR PO ONE (03:30)
[2019-10-01 03:52] LABS: Hematocrit (blood only) 35.5 % (37-47); Mean Corpuscular Hemoglobin 26.3 pg (25-34); Mean Corpuscular Hgb Conc 33.8 g/dL (32-36); Mean Corpuscular Volume 77.9 fL (80-100); Mean Platelet Volume 8.6 fL (7.4-10.4); Platelet Count 133 K/uL (130-400); RDW Coefficient of Variation 16.5 % (11.5-14.5); RDW Standard Deviation 46.9 fL (36.4-46.3); Red Blood Count 4.56 M/uL (4.2-5.4); White Blood Count 3.65 K/uL (4.8-10.8)
[2019-10-01] MEDS ORDERED: LORazepam 1 MG TAB PO PRN (04:05)
[2019-10-01] MEDS: MAGNESIUM SULFATE / D5W 1 GM/100 ML BAG IV SCH ×2 (04:10→05:25)
[2019-10-01] MEDS: carvediloL 6.25 MG TAB PO SCH ×2 (04:44→20:39)
[2019-10-01 04:59] LABS: BUN Creatinine Ratio 10.8 (10-20); Blood Urea Nitrogen 8 mg/dl (7-18); Calcium 9.5 mg/dl (8.5-10.1); Carbon Dioxide 27 mmol/L (21-32); Chloride 96 mmol/L (98-107); Est GFR (African American) 112.3; Est GFR (Non-African American) 96.9; Glucose 77 mg/dl (70-99); Magnesium 1.7 mg/dl (1.8-2.4); Potassium 3.9 mmol/L (3.5-5.1); Sodium 130 mmol/L (136-145)
[2019-10-01] MEDS: PATIENT'S HEIGHT AND/OR WEIGHT NEEDED SCH ×3 (05:03→09:39)
[2019-10-01 05:20] LABS: Acanthocytes 1+; Basophils # (auto) 0.02 K/uL (0-0.2); Basophils % (auto) 0.5 %; Eosinophils # (auto) 0.14 K/uL (0-0.5); Eosinophils % (auto) 3.8 %; Lymphocytes # (auto) 2.14 K/uL (1.2-3.4); Lymphocytes % (auto) 58.6 %; Monocytes # (auto) 0.44 K/uL (0.11-0.59); Monocytes % (auto) 12.1 %; Neutrophils # (auto) 0.91 K/uL (1.4-6.5); Schistocytes 1+
[2019-10-01] MEDS ORDERED: EPLERENONE PO SCH (09:00)
[2019-10-01] MEDS: ENOXAPARIN INJ 30 MG/0.3 ML SYR SQ SCH (09:04)
[2019-10-01] MEDS: ATORVASTATIN 20 MG TAB PO SCH (09:04)
[2019-10-01] MEDS: ASPIRIN 81 MG ECTAB PO SCH (09:04)
[2019-10-01] MEDS: CEROVITE ADV FORMULA TAB PO SCH (09:05)
[2019-10-01] MEDS: VITAMIN B COMPLEX TAB PO SCH (09:05)
[2019-10-01] MEDS: CHOLECALCIFEROL 1,000 UNITS 25 MCG TAB PO SCH (09:05)
[2019-10-01] MEDS: lisinopriL 5 MG TAB PO SCH ×2 (09:35→20:39)
--- NOTE | 2019-10-01 10:14 | Hospitalist Progress Note ---
Date of Service October 01, 2019 Assessment & Plan (1) Acute hyponatremia: Likely from suboptimal fluid/oral intake Pt has a recurrent breast cancer status post surgery, radiation, ongoing chemotherapy She has been restricting her diet quite a bit prior to coming to the hospital, she talked to dietitian today here, and seems to understand now how to prevent dehydration and weight loss Na level on admission 123, received normal saline in the ED Careful correction of sodium Sodium level 130 this morning, will continue to monitor every 6 hours -Hold diuretics Palpitations secondary to hypokalemia, hypomagnesemia -Replace electrolytes, continue to monitor on telemetry 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 Kandu subcu Full code Patient's , Mr. Joey Fuller, can be contacted at # . Subjective Patient is lying in bed in no acute distress, pleasant and talkative. Denies any fevers, chills, chest pain, shortness of breath, abdominal pain, nausea or vomiting. She was restricting her diet quite a bit prior to coming to the hospital, she talked to dietitian today here, and seems to understand now how to prevent dehydration and weight loss. Review of Systems Review of Systems: All systems reviewed & are unremarkable except as noted in HPI & below Constitutional: no fever and no chills Respiratory: no cough and no dyspnea Cardiovascular: + palpitations; no chest pain and no dyspnea on exertion Gastrointestinal: no abdominal pain, no nausea and no vomiting Physical Exam Physical Exam: GENERAL: Middle-aged female, + thin, lying in bed, in no acute distress HEENT: Normocephalic, atraumatic, EOMI, PERRL, dry buccal mucosa NECK : Supple, no tenderness CHEST : CTAB, no wheezing, rhonchi, or crackles HEART : RRR, no obvious murmurs ABDOMEN: +BS, soft, nontender, nondistended EXTREMITIES : No LE swelling/tenderness, no other conspicuous deformities noted SKIN: warm, dry , well perfused NEUROLOGIC : Alert and oriented x3, speech fluent, no facial asymmetry, moves all 4 extremities spontaneously Results & Data Vital Signs (Past 12 Hours) Vital Signs Temp Pulse Pulse Resp BP Pulse Ox 10/01/19 08:00 78 10/01/19 07:06 35.7 C L 70 16 91/48 L 98 10/01/19 04:47 36.8 C 85 18 98/65 L 100 10/01/19 04:43 69 96/60 L 10/01/19 04:34 72 10/01/19 01:20 87 21 100/57 L 100 09/30/19 23:13 83 20 110/70 99 09/30/19 22:21 72 73 20 115/73 99 Laboratory Results 10/01/19 10/01/19 10/01/19 Range/Units 09:48 03:40 03:40 WBC 3.65 L (4.8-10.8) K/uL RBC 4.56 (4.2-5.4) M/uL Hgb 12.0 (12.0-16.0) g/dL Hct 35.5 L (37-47) % MCV 77.9 L (80-100) fL MCH 26.3 (25-34) pg MCHC 33.8 (32-36) g/dL RDW Std Deviation 46.9 H (36.4-46.3) fL RDW Coeff of Rickie 16.5 H (11.5-14.5) % Plt Count 133 (130-400) K/uL MPV 8.6 (7.4-10.4) fL Immature Gran % (Auto) 0.0 % Neut % (Auto) 25.0 % Lymph % (Auto) 58.6 % [place] % (Auto) 12.1 % Eos % (Auto) 3.8 % Baso % (Auto) 0.5 % Immature Gran # (Auto) 0.00 (0.00-0.02) K/uL Neut # (Auto) 0.91 L* (1.4-6.5) K/uL Lymph # (Auto) 2.14 (1.2-3.4) K/uL [place] # (Auto) 0.44 (0.11-0.59) K/uL Eos # (Auto) 0.14 (0-0.5) K/uL Baso # (Auto) 0.02 (0-0.2) K/uL Acanthocytes (Spur) 1+ Schistocytes 1+ PT (9.0-12.0) Seconds INR (0.9-1.1) Sodium Pending 130 L D (136-145) mmol/L Potassium 3.9 (3.5-5.1) mmol/L Chloride 96 L (98-107) mmol/L Carbon Dioxide 27 (21-32) mmol/L Anion Gap 7.0 (3-11) BUN 8 (7-18) mg/dl Creatinine 0.70 (0.6-1.2) mg/dl Est Cr Clr Drug Dosing Not Reportable Est GFR ( Amer) 112.3 Est GFR (Non-Af Amer) 96.9 BUN/Creatinine Ratio 10.8 (10-20) Glucose 77 (70-99) mg/dl Osmolality (280-300) mOsm/kg Calcium 9.5 (8.5-10.1) mg/dl Magnesium 1.7 L (1.8-2.4) mg/dl Total Bilirubin (0.2-1) mg/dl AST (15-37) U/L ALT (12-78) U/L Alkaline Phosphatase (45-117) U/L Troponin I (0-0.045) ng/ml Total Protein (6.4-8.2) gm/dl Albumin (3.4-5.0) gm/dl Globulin (2.5-4.0) gm/dl Albumin/Globulin Ratio (0.9-2) TSH (0.300-4.500) uIu/ml Urine Color Urine Appearance (Clear) Urine pH (4.5-7.5) Ur Specific [place] (1.000-1.030) Urine Protein (Negative) Urine Glucose (UA) (Negative) Urine Ketones (Negative) Urine Blood (Negative) Urine Nitrite (Negative) Urine Bilirubin (Negative) Urine Urobilinogen (Negative) Ur Leukocyte Esterase (Negative) Urine Osmolality (500-800) mOsm/kg Ur Random Sodium mmol/L 09/30/19 09/30/19 09/30/19 Range/Units 23:13 23:13 23:13 WBC (4.8-10.8) K/uL RBC (4.2-5.4) M/uL Hgb (12.0-16.0) g/dL Hct (37-47) % MCV (80-100) fL MCH (25-34) pg MCHC (32-36) g/dL RDW Std Deviation (36.4-46.3) fL RDW Coeff of Rickie (11.5-14.5) % Plt Count (130-400) K/uL MPV (7.4-10.4) fL Immature Gran % (Auto) % Neut % (Auto) % Lymph % (Auto) % [place] % (Auto) % Eos % (Auto) % Baso % (Auto) % Immature Gran # (Auto) (0.00-0.02) K/uL Neut # (Auto) (1.4-6.5) K/uL Lymph # (Auto) (1.2-3.4) K/uL [place] # (Auto) (0.11-0.59) K/uL Eos # (Auto) (0-0.5) K/uL Baso # (Auto) (0-0.2) K/uL Acanthocytes (Spur) Schistocytes PT (9.0-12.0) Seconds INR (0.9-1.1) Sodium (136-145) mmol/L Potassium (3.5-5.1) mmol/L Chloride (98-107) mmol/L Carbon Dioxide (21-32) mmol/L Anion Gap (3-11) BUN (7-18) mg/dl Creatinine (0.6-1.2) mg/dl Est Cr Clr Drug Dosing Est GFR ( Amer) Est GFR (Non-Af Amer) BUN/Creatinine Ratio (10-20) Glucose (70-99) mg/dl Osmolality (280-300) mOsm/kg Calcium (8.5-10.1) mg/dl Magnesium (1.8-2.4) mg/dl Total Bilirubin (0.2-1) mg/dl AST (15-37) U/L ALT (12-78) U/L Alkaline Phosphatase (45-117) U/L Troponin I (0-0.045) ng/ml Total Protein (6.4-8.2) gm/dl Albumin (3.4-5.0) gm/dl Globulin (2.5-4.0) gm/dl Albumin/Globulin Ratio (0.9-2) TSH (0.300-4.500) uIu/ml Urine Color Yellow Urine Appearance Clear (Clear) Urine pH 7.5 (4.5-7.5) Ur Specific [place] 1.005 (1.000-1.030) Urine Protein Negative (Negative) Urine Glucose (UA) Negative (Negative) Urine Ketones Trace H (Negative) Urine Blood Negative (Negative) Urine Nitrite Negative (Negative) Urine Bilirubin Negative (Negative) Urine Urobilinogen Negative (Negative) Ur Leukocyte Esterase Negative (Negative) Urine Osmolality 106 L (500-800) mOsm/kg Ur Random Sodium 29 mmol/L 09/30/19 09/30/19 09/30/19 Range/Units 21:54 21:54 21:54 WBC 3.93 L (4.8-10.8) K/uL RBC 4.53 (4.2-5.4) M/uL Hgb 11.7 L (12.0-16.0) g/dL Hct 35.0 L (37-47) % MCV 77.3 L (80-100) fL MCH 25.8 (25-34) pg MCHC 33.4 (32-36) g/dL RDW Std Deviation 46.4 H (36.4-46.3) fL RDW Coeff of Rickie 16.5 H (11.5-14.5) % Plt Count 132 (130-400) K/uL MPV 8.5 (7.4-10.4) fL Immature Gran % (Auto) 0.0 % Neut % (Auto) 34.1 % Lymph % (Auto) 50.9 % [place] % (Auto) 10.9 % Eos % (Auto) 3.8 % Baso % (Auto) 0.3 % Immature Gran # (Auto) 0.00 (0.00-0.02) K/uL Neut # (Auto) 1.34 L (1.4-6.5) K/uL Lymph # (Auto) 2.00 (1.2-3.4) K/uL [place] # (Auto) 0.43 (0.11-0.59) K/uL Eos # (Auto) 0.15 (0-0.5) K/uL Baso # (Auto) 0.01 (0-0.2) K/uL Acanthocytes (Spur) Schistocytes 1+ PT 11.1 (9.0-12.0) Seconds INR 1.1 (0.9-1.1) Sodium 123 L (136-145) mmol/L Potassium 3.4 L (3.5-5.1) mmol/L Chloride 87 L (98-107) mmol/L Carbon Dioxide 27 (21-32) mmol/L Anion Gap 9.0 (3-11) BUN 10 (7-18) mg/dl Creatinine 0.75 (0.6-1.2) mg/dl Est Cr Clr Drug Dosing Not Reportable Est GFR ( Amer) 103.3 Est GFR (Non-Af Amer) 89.1 BUN/Creatinine Ratio 12.7 (10-20) Glucose 90 (70-99) mg/dl Osmolality (280-300) mOsm/kg Calcium 9.3 (8.5-10.1) mg/dl Magnesium 1.3 L (1.8-2.4) mg/dl Total Bilirubin 0.8 (0.2-1) mg/dl AST 70 H (15-37) U/L ALT 69 (12-78) U/L Alkaline Phosphatase 91 (45-117) U/L Troponin I < 0.015 (0-0.045) ng/ml Total Protein 7.3 (6.4-8.2) gm/dl Albumin 3.5 (3.4-5.0) gm/dl Globulin 3.8 (2.5-4.0) gm/dl Albumin/Globulin Ratio 0.9 (0.9-2) TSH 2.750 (0.300-4.500) uIu/ml Urine Color Urine Appearance (Clear) Urine pH (4.5-7.5) Ur Specific [place] (1.000-1.030) Urine Protein (Negative) Urine Glucose (UA) (Negative) Urine Ketones (Negative) Urine Blood (Negative) Urine Nitrite (Negative) Urine Bilirubin (Negative) Urine Urobilinogen (Negative) Ur Leukocyte Esterase (Negative) Urine Osmolality (500-800) mOsm/kg Ur Random Sodium mmol/L 09/30/19 Range/Units 21:32 WBC (4.8-10.8) K/uL RBC (4.2-5.4) M/uL Hgb (12.0-16.0) g/dL Hct (37-47) % MCV (80-100) fL MCH (25-34) pg MCHC (32-36) g/dL RDW Std Deviation (36.4-46.3) fL RDW Coeff of Rickie (11.5-14.5) % Plt Count (130-400) K/uL MPV (7.4-10.4) fL Immature Gran % (Auto) % Neut % (Auto) % Lymph % (Auto) % [place] % (Auto) % Eos % (Auto) % Baso % (Auto) % Immature Gran # (Auto) (0.00-0.02) K/uL Neut # (Auto) (1.4-6.5) K/uL Lymph # (Auto) (1.2-3.4) K/uL [place] # (Auto) (0.11-0.59) K/uL Eos # (Auto) (0-0.5) K/uL Baso # (Auto) (0-0.2) K/uL Acanthocytes (Spur) Schistocytes PT (9.0-12.0) Seconds INR (0.9-1.1) Sodium (136-145) mmol/L Potassium (3.5-5.1) mmol/L Chloride (98-107) mmol/L Carbon Dioxide (21-32) mmol/L Anion Gap (3-11) BUN (7-18) mg/dl Creatinine (0.6-1.2) mg/dl Est Cr Clr Drug Dosing Est GFR ( Amer) Est GFR (Non-Af Amer) BUN/Creatinine Ratio (10-20) Glucose (70-99) mg/dl Osmolality 259 L (280-300) mOsm/kg Calcium (8.5-10.1) mg/dl Magnesium (1.8-2.4) mg/dl Total Bilirubin (0.2-1) mg/dl AST (15-37) U/L ALT (12-78) U/L Alkaline Phosphatase (45-117) U/L Troponin I (0-0.045) ng/ml Total Protein (6.4-8.2) gm/dl Albumin (3.4-5.0) gm/dl Globulin (2.5-4.0) gm/dl Albumin/Globulin Ratio (0.9-2) TSH (0.300-4.500) uIu/ml Urine Color Urine Appearance (Clear) Urine pH (4.5-7.5) Ur Specific [place] (1.000-1.030) Urine Protein (Negative) Urine Glucose (UA) (Negative) Urine Ketones (Negative) Urine Blood (Negative) Urine Nitrite (Negative) Urine Bilirubin (Negative) Urine Urobilinogen (Negative) Ur Leukocyte Esterase (Negative) Urine Osmolality (500-800) mOsm/kg Ur Random Sodium mmol/L Medications Administered Current Inpatient Medications Acetaminophen (Tylenol) 650 mg PO Q4H PRN PRN Reason: Pain or Fever Stop: 10/31/19 03:06 Aspirin (Ecotrin Ectab) 81 mg PO DAILY [facility] Stop: 10/31/19 08:59 Last Admin: 10/01/19 09:04 Dose: 81 mg Documented by: Atorvastatin Calcium (Lipitor) 20 mg PO DAILY [facility] Stop: 10/31/19 08:59 Last Admin: 10/01/19 09:04 Dose: 20 mg Documented by: Carvedilol (Coreg) 6.25 mg PO BID [facility] Stop: 10/31/19 03:06 Last Admin: 10/01/19 04:44 Dose: Not Given Documented by: Enoxaparin Sodium (Lovenox) 30 mg SQ QAM [facility] Stop: 10/31/19 08:59 Last Admin: 10/01/19 09:04 Dose: 30 mg Documented by: Lorazepam (Ativan) 0.25 mg in 0.5 mls @ 0.5 mls/min IV Q4H PRN PRN Reason: Anxiety Stop: 10/31/19 03:06 Last Admin: 10/01/19 04:09 Dose: 0.5 mls/min Documented by: Lidocaine/Prilocaine (Emla 2.5% Crm) 1 ea EXT UD PRN PRN Reason: MEDIPORT Stop: 10/31/19 03:06 Lisinopril (Zestril) 5 mg PO Q12 [facility] Stop: 10/31/19 08:59 Last Admin: 10/01/19 09:35 Dose: Not Given Documented by: Lorazepam (Ativan) 1 mg PO TID PRN PRN Reason: Anxiety Stop: 10/31/19 04:04 Metoclopramide HCl (Reglan) 5 mg IV Q6H PRN PRN Reason: nv Stop: 10/31/19 03:06 Multivitamins/Minerals (Multivitamin W/ Minerals Tab) 1 tab PO DAILY [facility] Stop: 10/31/19 08:59 Last Admin: 10/01/19 09:05 Dose: 1 tab Documented by: Nitroglycerin (Nitrostat) 0.4 mg SL UD PRN PRN Reason: Chest Pain Stop: 10/31/19 03:06 Oxycodone HCl (Roxicodone Immediate Rel) 5 mg PO Q4H PRN PRN Reason: Pain Stop: 10/15/19 03:06 Senna/Docusate Sodium (Senokot S) 1 tab PO HS PRN PRN Reason: Constipation Stop: 10/31/19 03:06 Vitamin B Complex (Vitamin B Complex) 1 tab PO DAILY [facility] Stop: 10/31/19 08:59 Last Admin: 10/01/19 09:05 Dose: 1 tab Documented by: Vitamin D (Vitamin D3) 3,000 units PO DAILY [facility] Stop: 10/31/19 08:59 Last Admin: 10/01/19 09:05 Dose: 3,000 units Documented by:
[2019-10-01] MEDS: SODIUM CHLORIDE 0.9% 1000ML 1,000 ML IV SCH (18:06)
--- NOTE | 2019-10-01 21:52 | Electrocardiogram Report ---
Test Reason : Blood Pressure : / mmHG Vent. Rate : 078 BPM Atrial Rate : 078 BPM P-R Int : 150 ms QRS Dur : 094 ms QT Int : 374 ms P-R-T Axes : 073 059 061 degrees QTc Int : 426 ms Sinus rhythm with Premature atrial complexes Otherwise normal ECG When compared with ECG of 22-OCT-2014 13:14, Premature atrial complexes are now Present QT has shortened Confirmed by Dae Howell ([id number]) on 10/01/2019 9:51:51 PM Referred By: REFERRED SELF Confirmed By:Dae Howell
[2019-10-02] MEDS: SODIUM CHLORIDE 0.9% 1000ML 1,000 ML IV SCH (05:12)
[2019-10-02 06:54] LABS: Basophils # (auto) 0.02 K/uL (0-0.2); Basophils % (auto) 0.6 %; Eosinophils # (auto) 0.12 K/uL (0-0.5); Eosinophils % (auto) 3.6 %; Hematocrit (blood only) 32.5 % (37-47); Hemoglobin 10.9 g/dL (12.0-16.0); Immature Granulocytes # (auto) 0.01 K/uL (0.00-0.02); Immature Granulocytes % (auto) 0.3 %; Lymphocytes # (auto) 1.44 K/uL (1.2-3.4); Lymphocytes % (auto) 42.9 %; Mean Corpuscular Hemoglobin 26.3 pg (25-34); Mean Corpuscular Hgb Conc 33.5 g/dL (32-36); Mean Corpuscular Volume 78.5 fL (80-100); Mean Platelet Volume 7.9 fL (7.4-10.4); Monocytes # (auto) 0.52 K/uL (0.11-0.59); Monocytes % (auto) 15.5 %; Neutrophils # (auto) 1.25 K/uL (1.4-6.5); Neutrophils % (auto) 37.1 %; Platelet Count 112 K/uL (130-400); RDW Coefficient of Variation 16.9 % (11.5-14.5); RDW Standard Deviation 48.5 fL (36.4-46.3); Red Blood Count 4.14 M/uL (4.2-5.4); White Blood Count 3.36 K/uL (4.8-10.8)
[2019-10-02 07:24] LABS: BUN Creatinine Ratio 15.6 (10-20); Calcium 9.1 mg/dl (8.5-10.1); Creatinine Clr Calc Pharmacy 81.3 ml/min; Est GFR (African American) 108.5; Est GFR (Non-African American) 93.6; Magnesium 1.5 mg/dl (1.8-2.4); Potassium 3.8 mmol/L (3.5-5.1)
[2019-10-02 07:39] LABS: Schistocytes Occasional; Target Cells 1+
[2019-10-02] MEDS ORDERED: MAGNESIUM SULFATE / D5W 1 GM/100 ML BAG IV ONE (08:15)
[2019-10-02] MEDS: ATORVASTATIN 20 MG TAB PO SCH (08:51)
[2019-10-02] MEDS: CHOLECALCIFEROL 1,000 UNITS 25 MCG TAB PO SCH (08:51)
[2019-10-02] MEDS: VITAMIN B COMPLEX TAB PO SCH (08:51)
[2019-10-02] MEDS: CEROVITE ADV FORMULA TAB PO SCH (08:51)
[2019-10-02] MEDS: ASPIRIN 81 MG ECTAB PO SCH (08:51)
[2019-10-02] MEDS ORDERED: carvediloL 6.25 MG TAB PO SCH (09:00)
[2019-10-02] MEDS: ENOXAPARIN INJ 30 MG/0.3 ML SYR SQ SCH (09:05)
--- NOTE | 2019-10-02 09:43 | Discharge Summary ---
Date of Service October 02, 2019 Admission HPI Per Admitting Provider History obtained from patient, family, and records. 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 Patient noted chest palpitations this afternoon without chest pain and S OB. Usual dancing activity at home to [employer]. No unusual fluid retention. thinks patient does not eat as much as she should. No diary symptoms. Patient brought to the ER for evaluation. Medical History as above Surgical History : Hysterectomy, bilateral mastectomy, breast reconstruction, vascular procedure, tonsillectomy Family History : Lung cancer, heart disease, high blood pressure Personal/Social history : Non-smoker, occasional EtOH intake, prior work at [employer], currently disabled Admission Exam Per Admitting Provider GENERAL: Comfortable, wane, pleasant, no respiratory distress SKIN: Pallor , warm HEENT: Alopecia, pale palpebral conjunctivae, no ptosis, dry buccal mucosa NECK : Supple, no tenderness CHEST : CTA, no tenderness HEART : RRR, no obvious murmurs ABDOMEN: Soft, nontender EXTREMITIES : No LE swelling/tenderness, no other conspicuous deformities noted NEUROLOGIC : Coherent, no facial asymmetry, no other gross focality Principal Diagnosis Dehydration, hyponatremia, hypomagnesemia Discharge Exam GENERAL: Middle-aged female, + thin, lying in bed, in no acute distress HEENT: Normocephalic, atraumatic, EOMI, PERRL, dry buccal mucosa NECK : Supple, no tenderness CHEST : CTAB, no wheezing, rhonchi, or crackles HEART : RRR, no obvious murmurs ABDOMEN: +BS, soft, nontender, nondistended EXTREMITIES : No LE swelling/tenderness, no other conspicuous deformities noted SKIN: warm, dry , well perfused NEUROLOGIC : Alert and oriented x3, speech fluent, no facial asymmetry, moves all 4 extremities spontaneously Discharge Data Allergies Allergy/AdvReac Type Severity Reaction Status Date / Time animal dander Allergy Mild HIVES Unverified 09/30/19 22:02 aspirin Allergy Unknown ? NAUSEA Verified 09/30/19 22:02 orphenadrine Allergy Unknown ? NAUSEA Verified 09/30/19 22:02 caffeine [From Norgesic] Allergy Unknown Verified 09/30/19 22:04 ondansetron [From Zofran] AdvReac Intermediate NAUSEA/VOMI Verified 09/30/19 22:02 RADHA prochlorperazine AdvReac MAKES A Verified 09/30/19 22:04 [From Compazine] FEEL DIFFERENT SUNSCREEN Allergy Severe Rash Uncoded 09/30/19 22:02 Consultations 09/30/19 22:56 ED Decision to Admit Stat Hospital Course (1) Acute hyponatremia: Likely from suboptimal fluid/oral intake Pt has a recurrent breast cancer status post surgery, radiation, ongoing chemotherapy She has been restricting her diet quite a bit prior to coming to the hospital, she talked to dietitian here, and seems to understand now how to prevent dehydration and weight loss Na level on admission 123, received normal saline in the ED Careful correction of sodium Sodium level 130 yesterday morning, continued to monitor every 6 hours -Held diuretics, current Na improved to -will cont. 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 (EF 48%, TTE 2019), Patient dehydrated on admission, will continue to closely monitor Hx of hypertension -Currently hypotensive, continue to monitor Neutropenia -Secondary to recent chemotherapy -ANC 0.9, today improved to 1.25 -No history of fever, will continue to monitor Pancytopenia - secondary to chemotherapy - current WBC 3.63, RBC 4.14, Hgb 10.9, Hct 32.5, plts 112 Anxiety/mood disorder, at baseline Total Time Total Time Spent Total Time Spent (In Minutes): 40 Total Time Includes: Examination of the Patient, Discharge Planning and Medication Reconciliation Discharge Plan Discharge Items Patient Disposition: Home - Self-Care Reason For Visit: HYPONATREMIA Discharge Diagnosis: Dehydration, hyponatremia,hypomagnesemia Activity: Resume your previous activity Activity Comment: as tolerated, pace yourself, ask for help as needed Non-emergency contact: Primary Care Provider and Oncologist Call non-emergency contact if: you have any medication questions and your symptoms worsen Follow-up/Referrals: Alexandra Berman, DO [Primary Care Provider] - 10/08/19 11:05 am Diet: Regular Diet Comment: Per dietitian recommendations Addtl Attending Provider Instructions: Do not take your eplerenone until you see your primary care provider. Your lisinopril and Coreg were also decreased in half. This is because your blood pressure is on the lower side. Make sure to monitor blood pressure at home, do not take these medications if your blood pressure is lower than 100/60mm Hg. Make sure to follow the diet that was discussed with you with our dietitian here in the hospital. Your magnesium level has been low here, you were started on magnesium supplement. Follow-up with your primary care provider on October 08, at 11:05 AM. At that time your blood pressure should be checked and also your blood work (to check your electrolytes, especially your sodium, potassium and magnesium). Recommend to weigh yourself every morning, and keep a log of your weight. Make sure to bring this log to your primary care provider to your next appointment. Pending Studies at Discharge: No Stand-Alone Forms: My [facility], Smoking Cessation Medications and DC Order Prescriptions: New magnesium oxide 400 mg magnesium capsule 400 mg PO DAILY 14 Days Qty: 14 RF: 0 Continued atorvastatin [Lipitor] 20 mg tablet 20 mg PO DAILY RF: 0 sennosides-docusate sodium [Senna-S] 8.6-50 mg Tablet 1 tab-cap PO HS PRN (Reason: Constipation) RF: 0 aspirin [Aspir-81] 81 mg Tablet,Delayed Release (Dr/Ec) 81 mg PO DAILY RF: 0 lidocaine-prilocaine 2.5-2.5 % cream 1 applic topical UD PRN (Reason: MEDIPORT) RF: 0 milk thistle 150 mg Capsule 0 mg PO DAILY RF: 0 gabapentin 100 mg Capsule 100 mg PO TID RF: 0 lorazepam 1 mg tablet 1 mg PO TID PRN (Reason: Anxiety) RF: 0 B-complex with vitamin C [Super B Complex-Vitamin C] Tablet 1 tab PO DAILY RF: 0 escitalopram oxalate 20 mg tablet 20 mg PO DAILY RF: 0 Centrum Silver 0.4-300-250 mg-mcg-mcg Tablet 1 tab PO DAILY RF: 0 cholecalciferol (vitamin D3) [Vitamin D3] 25 mcg (1,000 unit) Tablet,Chewable 3,000 unit PO DAILY RF: 0 PreserVision AREDS-2 [id number] qb-fons-tc-mg Capsule 2 tab PO BID RF: 0 [id number] [krill oil] 1,[id number] mg Capsule 1 cap PO DAILY RF: 0 Changed carvedilol [Coreg] 3.125 mg tablet 3.125 mg PO BID Qty: 0 RF: 0 lisinopril 5 mg tablet 2.5 mg PO Q12 Qty: 0 RF: 0 Discontinued eplerenone [Inspra] 25 mg tablet 12.5 mg PO DAILY RF: 0 Discharge Orders: Discharge Order (Routine); Ordered 10/02/19 Ordered By: Brennen Kidd/Other Patient Handouts: Hyponatremia Dc Admission Data Admit Date/Time: 09/30/19 23:59 Attending Provider: Brennen Vazquez Admit Provider: Tod Miller Primary Care Provider: Alexandra Berman Other Providers: Tod Miller Other Interventions: Discharge Summary Assessment (RN) Last Done: 10/02/19 10:40 DC Date/Time DO NOT enter until pt leaves facility: 10/02/19 12:50
== END 2019-10-02 12:50 | disposition home or self-care (01) | DRG 640 ==
LOC: ED 21:02 → 2W 23:59